=== PATIENT | male | born 1960 | race Caucasian/White ===

== ENCOUNTER → 2017-07-12 | Outpatient (CLI) | payer BC ==
[2016-10-24 10:40] VITALS: BP 156/78
[~2017-07-12] MED LIST: Clonidine TD; DILT240C32 PO; ESOM40CA25 PO; GABA-585 PO; HYDR-2762 PO; IBUP200T43 PO; INSU100I13 SQ; INSU300I SQ; IOHEXOL 240 MG/ML 50ML VIAL. PO ONE; IOHEXOL 300 MG/ML 75 ML VIAL. IV ONE; LIPA1CAP12 PO; MELO15TA23 PO; MELO15TA6 PO; MULT-245 PO; MULT-246 PO; NICO1PAT21 TD; OXYC20TA34 PO; PRED50TA PO
[2017-07-12 10:16] LABS: BASO # 0.1 x10^3/uL (0.0-0.2); BASO % 1 % (0-3); EOS # 0.1 x10^3/uL (0.0-0.7); EOS % 1 % (0-3); HEMATOCRIT 40.6 % (39.0-53.0); HEMOGLOBIN 14.2 g/dL (13.0-17.5); LYMPH # 2.2 x10^3/uL (1.0-4.8); LYMPH % 21 % (24-48); MEAN CORPUSCULAR HEMOGLOBIN 34 pg (25-35); MEAN CORPUSCULAR HGB CONC 35 g/dL (31-37); MEAN CORPUSCULAR VOLUME 96 fL (79-100); MONO # 1.2 x10^3/uL (0.0-1.1); MONO % 11 % (0-9); NEUT # 7.1 x10^3uL (1.8-7.7); NEUT % 67 % (31-73); PLATELET COUNT 296 x10^3/uL (140-400); RED BLOOD COUNT 4.23 x10^6/uL (4.30-5.70); RED CELL DISTRIBUTION WIDTH 12.7 % (11.5-14.5); WHITE BLOOD COUNT 10.6 x10^3/uL (4.0-11.0)
[2017-07-12 10:25] LABS: ALBUMIN 3.3 g/dL (3.4-5.0); ALBUMIN/GLOBULIN RATIO 0.8 (1.0-1.7); CALCIUM 9.3 mg/dL (8.5-10.1); CREATININE 0.8 mg/dL (0.7-1.3); POTASSIUM 3.7 mmol/L (3.5-5.1); TOTAL BILIRUBIN 0.6 mg/dL (0.2-1.0); TOTAL PROTEIN 7.7 g/dL (6.4-8.2)
--- NOTE | 2017-07-12 12:16 | RAD ---
CT of the abdomen and pelvis with contrast, 07/12/2017: History: Increasing abdominal pain and vomiting Multidetector CT imaging was performed following oral and IV administration of contrast. Comparison is made to a study from 12/06/2015. Coronary artery calcifications are present. The lung bases are clear. No hepatic abnormality is seen. There are radiopacities within the dependent aspect of the gallbladder compatible with gallstones. No pericholecystic edema is seen. There are numerous pancreatic calcifications compatible with chronic calcific pancreatitis. A cystic structure in the pancreatic body, just to the left of midline seen on the previous study has increased in size. It now measures 7.1 cm in width. There is a discrete wall as well as evidence of internal debris. Enlargement of the pancreatic head seen on the previous study has diminished. There is a 9 mm cystic structure in the pancreatic head which may be an additional small pseudocyst or dilated ductal segment. There is a 7.4 cm cyst related to the pancreatic tail located along the anterior margin of the spleen. This has decreased in size since the previous study at which time it measured 9.8 cm in width. There is mild calcification along its rim. This most likely represents an additional pseudocyst There is mild bilateral renal scarring. The kidneys show no evidence of obstruction. There is unchanged mild diffuse thickening of the left adrenal gland. Aortoiliac calcific plaquing is present without evidence of aneurysm. No abdominal or pelvic adenopathy is seen. There is narrowing of the splenic vein as it passes along the posterior margin of the cystic mass in the pancreatic body. The portal vein is patent. There are colonic diverticula, most numerous in the sigmoid region. The bowel loops are not dilated. The appendix is visualized and shows no abnormality. No free air or significant free fluid is evident in the abdomen or pelvis. There are old lower rib fractures on the left. A right hip prosthesis is in place. There are moderate degenerative changes in the spine with minimal anterolisthesis at L4-5. IMPRESSION: 1. Chronic calcific pancreatitis with an enlarging complicated cyst in the pancreatic body most compatible with a pseudocyst. 2. The chronic presumed pseudocyst related to the pancreatic tail has decreased in size since 12/06/2015. 3. Probable tiny pseudocyst in the pancreatic head. 4. Cholelithiasis. 5. Sigmoid diverticulosis. PQRS Compliance Statement: One or more of the following individualized dose reduction techniques were utilized for this examination: 1. Automated exposure control 2. Adjustment of the mA and/or kV according to patient size 3. Use of iterative reconstruction technique
[2017-07-12 13:54] LABS: THYROID STIM HORMONE (TSH) 2.523 uIU/mL (0.358-3.740)
[2017-07-13 00:08] LABS: HEMOGLOBIN A1C 6.6 % (4.8-5.6)
[2017-07-13 14:11] LABS: FREE PSA/PSA RATIO 27.1 % (.); PSA FREE 0.19 ng/mL; PSA TOTAL 0.7 ng/mL (0.0-4.0)
== END | disposition home or self-care (01) ==
LOC: CT 09:49
PROVIDERS: ATTEND Physician Assistant
DX: K80.20 Calculus of gallbladder without cholecystitis without obstruction (principal); K86.1 Other chronic pancreatitis; K86.2 Cyst of pancreas; K57.30 Diverticulosis of large intestine without perforation or abscess without bleeding; I25.10 Atherosclerotic heart disease of native coronary artery without angina pectoris; K86.89 Other specified diseases of pancreas; N28.89 Other specified disorders of kidney and ureter; I70.0 Atherosclerosis of aorta; M43.06 Spondylolysis, lumbar region; R35.1 Nocturia; I10 Essential (primary) hypertension; E11.65 Type 2 diabetes mellitus with hyperglycemia; S22.42XD Multiple fractures of ribs, left side, subsequent encounter for fracture with routine healing; Z79.01 Long term (current) use of anticoagulants; Z96.641 Presence of right artificial hip joint; X58.XXXD Exposure to other specified factors, subsequent encounter
CPT/HCPCS: 36415; 74177; 80053; 80061; 82150; 83036; 83690; 84153; 84154; 84443; 85025; Q9966; Q9967

== ENCOUNTER 2017-09-26 21:39 | Inpatient (IN) | payer BC ==
[~2017-09-26] VITALS: Ht 180.3 cm; Wt 84.1 kg
[~2017-09-26 21:39] MED LIST changes: -IBUP200T43 PO; +IBUP200T44 PO; -IOHEXOL 240 MG/ML 50ML VIAL. PO ONE; -IOHEXOL 300 MG/ML 75 ML VIAL. IV ONE
--- NOTE | 2017-09-26 21:40 | ED.ADGEN ---
Past History Past Medical History: Diabetes, Gallstones, GERD, Hypertension, Pancreatitis, Other Past Surgical History: Hip Replacement, Other Smoking: Less than 1pk/day Alcohol Use: Occasionally Drug Use: None Adult General Chief Complaint Chief Complaint ".. I got to drinking some beer while watching the foot ball game on Tuesday.. and it probably got my pancreatitis all flared up again..." HPI HPI Patient is a 57 year old male who presents with above history and complaints of generalized abdomen pain. Patient states his presentation consistent with previous episodes of pancreatitis. Patient did indulge in intake of beer during a football game on Tuesday and since that time has had exacerbation of his pancreatic pain. Patient states he is taking some hydrocodone tablets at home with no relief of his pain. Patient rates his pain 9-10 out of 10. Patient has to nauseated to take any foods. Patient denies any travel or ill contacts. Patient denies any tarry stools. Patient localizes pain across tenderness upper abdomen. Patient follows with Dr. Beyer. Review of Systems Review of Systems Constitutional: Denies fever or chills [] Eyes: Denies change in visual acuity, redness, or eye pain [] HENT: Denies nasal congestion or sore throat [] Respiratory: Denies cough or shortness of breath [] Cardiovascular: No additional information not addressed in HPI [] GI: Complaints of abdominal pain, nausea,. Denies vomiting, bloody stools or diarrhea [] : Denies dysuria or hematuria [] Musculoskeletal: Denies back pain or joint pain [] Integument: Denies rash or skin lesions [] Neurologic: Denies headache, focal weakness or sensory changes [] Endocrine: Denies polyuria or polydipsia [] All other systems were reviewed and found to be within normal limits, except as documented in this note. Family History Family History Noncontributory Current Medications Current Medications Current Medications Medications (Trade) Dose Ordered Sig/Anel Start Time Stop Time Status Last Admin Dose Admin Ceftriaxone Sodium 1 gm/ Sodium Chloride 50 ml @ 100 mls/hr DAILY 09/27/17 09:00 UNV Famotidine (Pepcid Vial) 20 mg DAILY 09/27/17 09:00 UNV Iohexol (Omnipaque 240 Mg/ml) 30 ml 1X ONCE 09/26/17 22:15 09/26/17 22:16 DC 09/26/17 23:21 30 ML Iohexol (Omnipaque 300 Mg/ml) 75 ml 1X ONCE 09/26/17 22:15 09/26/17 22:16 DC 09/26/17 23:22 75 ML Lactated Ringer's 1,000 ml @ 1,000 mls/hr Q1H 09/26/17 22:00 Metronidazole 100 ml @ 100 mls/hr Q8HRS 09/27/17 06:00 UNV Morphine Sulfate (Morphine 10mg Syringe) 10 mg QIDPRN PRN 09/27/17 01:00 UNV Ondansetron HCl (Zofran) 4 mg QIDPRN PRN 09/27/17 01:00 UNV Sodium Chloride 1,000 ml @ 1,000 mls/hr Q1H 09/26/17 22:00 09/26/17 22:59 DC 09/26/17 22:39 1,000 MLS/HR See nursing for home meds Allergies Allergies Allergies Coded Allergies Type Severity Reaction Last Updated Verified KELTON Inhibitors Allergy Intermediate 03/27/14 Yes lisinopril Allergy Unknown 03/27/14 Yes Physical Exam Physical Exam Constitutional: in acute distress, non-toxic appearance. [] HENT: Normocephalic, atraumatic, bilateral external ears normal, oropharynx moist, no oral exudates, nose normal. [] Eyes: PERRLA, EOMI, conjunctiva normal, no discharge. [] Neck: Normal range of motion, no tenderness, supple, no stridor. [] Cardiovascular:Heart rate regular rhythm, no murmur . PMI to the left Lungs & Thorax: Bilateral breath sounds equal at apexes with scattered wheezes and some basilar crackles on auscultation [] Abdomen: Bowel sounds decreased, soft, marked generalized tenderness, does have increased pain in epigastric on palpation., no pulsatile masses. [] Skin: Warm, diaphoretic, no erythema, no rash. [] Back: No tenderness, no CVA tenderness. [] Extremities: No tenderness, no cyanosis, no clubbing, ROM intact, no edema. [] Neurologic: Alert and oriented X 3, normal motor function, normal sensory function, no focal deficits noted. [] Psychologic: Affect anxious, judgement normal, mood depressed Current Patient Data Vital Signs Vital Signs Date Time Temp Pulse Resp B/P (MAP) Pulse Ox O2 Delivery O2 Flow Rate FiO2 09/27/17 00:00 78 16 157/88 (111) 92 09/26/17 23:00 Room Air 09/26/17 21:49 97.5 Lab Results Laboratory Tests Test 09/26/17 22:27 09/26/17 23:02 09/26/17 23:57 White Blood Count 12.6 x10^3/uL (4.0-11.0) H Red Blood Count 4.55 x10^6/uL (4.30-5.70) Hemoglobin 15.1 g/dL (13.0-17.5) Hematocrit 43.9 % (39.0-53.0) Mean Corpuscular Volume 96 fL (79-100) Mean Corpuscular Hemoglobin 33 pg (25-35) Mean Corpuscular Hemoglobin Concent 34 g/dL (31-37) Red Cell Distribution Width 14.2 % (11.5-14.5) Platelet Count 200 x10^3/uL (140-400) Neutrophils (%) (Auto) 87 % (31-73) H Lymphocytes (%) (Auto) 8 % (24-48) L Monocytes (%) (Auto) 4 % (0-9) Eosinophils (%) (Auto) 0 % (0-3) Basophils (%) (Auto) 1 % (0-3) Neutrophils # (Auto) 11.0 x10^3uL (1.8-7.7) H Lymphocytes # (Auto) 1.0 x10^3/uL (1.0-4.8) Monocytes # (Auto) 0.6 x10^3/uL (0.0-1.1) Eosinophils # (Auto) 0.0 x10^3/uL (0.0-0.7) Basophils # (Auto) 0.1 x10^3/uL (0.0-0.2) Prothrombin Time 10.8 SEC (9.4-11.4) Prothrombin Time INR 1.1 (0.9-1.1) PTT 28 SEC (23-33) Sodium Level 135 mmol/L (136-145) L Potassium Level 3.7 mmol/L (3.5-5.1) Chloride Level 99 mmol/L (98-107) Carbon Dioxide Level 27 mmol/L (21-32) Anion Gap 9 (6-14) Blood Urea Nitrogen 15 mg/dL (8-26) Creatinine 0.8 mg/dL (0.7-1.3) Estimated GFR (Cockcroft-Gault) 100.0 Glucose Level 206 mg/dL (70-99) H Calcium Level 8.1 mg/dL (8.5-10.1) L Total Bilirubin 0.4 mg/dL (0.2-1.0) Direct Bilirubin 0.1 mg/dL (0.0-0.2) Aspartate Amino Transferase (AST) 19 U/L (15-37) Alanine Aminotransferase (ALT) 20 U/L (16-63) Alkaline Phosphatase 75 U/L (46-116) Creatine Kinase 108 U/L (39-308) Creatine Kinase MB (Mass) 1.5 ng/mL (0.0-3.6) Creatine Kinase MB Relative Index 1.4 % (0-4) Troponin I Quantitative < 0.017 ng/mL (0-0.055) Total Protein 7.4 g/dL (6.4-8.2) Albumin 3.6 g/dL (3.4-5.0) Amylase Level 160 U/L (25-115) H Lipase 611 U/L (73-393) H Ethyl Alcohol Level < 10 mg/dL (0-10) Urine Collection Type Unknown Urine Color Yellow Urine Clarity Clear Urine pH 7.5 Urine Specific [place] 1.015 Urine Protein Neg (NEG-TRACE) Urine Glucose (UA) >=1000 mg/dL (NEG) Urine Ketones (Stick) 40 mg/dL (NEG) Urine Blood Trace (NEG) Urine Nitrite Neg (NEG) Urine Bilirubin Neg (NEG) Urine Urobilinogen Dipstick 0.2 mg/dL (0.2 mg/dL) Urine Leukocyte Esterase Neg (NEG) Urine RBC Occ /HPF (0-2) Urine WBC Occ /HPF (0-4) Urine Squamous Epithelial Cells None /LPF Urine Bacteria 0 /HPF (0-FEW) Urine Opiates Screen Pos (NEG) Urine Methadone Screen Neg (NEG) Urine Barbiturates Neg (NEG) Urine Phencyclidine Screen Neg (NEG) Urine Amphetamine/Methamphetamine Neg (NEG) Urine Benzodiazepines Screen Neg (NEG) Urine Cocaine Screen Neg (NEG) Urine Cannabinoids Screen Neg (NEG) Urine Ethyl Alcohol Neg (NEG) EKG EKG My interpretation of EKG shows a sinus rhythm at 70 bpm. No findings acute STEMI.[] Radiology/Procedures Radiology/Procedures My interpretation of acute abdomen film shows no free air under the diaphragm old pulmonary calcified nodules and findings of COPD[]. Some basilar atelectasis. Right hip replacement. Nonspecific bowel gas pattern. CT of abdomen pending at time of admission. Course & Med Decision Making Course & Med Decision Making Pertinent Labs and Imaging studies reviewed. (See chart for details) Message left with Dr. Beyer at 0015 , 09/27/2017. Will admit for further eval and tx. of abd. pain. [] Final Impression Final Impression 1. Abdomen Pain 2. Pancreatitis acute on chronic 3. Alcohol Abuse[] 4. Leukocytosis 5. Pseudocysts 6.6 cm x 2 6. DM Problems: Dragon Disclaimer Dragon Disclaimer This electronic medical record was generated, in whole or in part, using a voice recognition dictation system. ERICK MCKEON MD Sep 26, 2017 21:40
[2017-09-26] MEDS ORDERED: FAMOTIDINE 20 MG/2 ML VIAL IVP ONE (22:00)
[2017-09-26] MEDS ORDERED: IV RINGERS SOLUTION,LACTATED 1,000 ML IV SCH (22:00)
[2017-09-26] MEDS ORDERED: ONDANSETRON PF 4 MG/2 ML VIAL. IV ONE (22:00)
[2017-09-26] MEDS ORDERED: IV NORMAL SALINE 1,000ML 1,000 ML IV SCH (22:00)
[2017-09-26] MEDS ORDERED: IOHEXOL 300 MG/ML 75 ML VIAL. IV ONE (22:15)
[2017-09-26] MEDS ORDERED: IOHEXOL 240 MG/ML 50ML VIAL. PO ONE (22:15)
[2017-09-26] MEDS ORDERED: MORPHINE SULFATE 10 MG/ML SYRINGE. SQ ONE (22:30)
[2017-09-26 22:47] LABS: BASO # 0.1 x10^3/uL (0.0-0.2); BASO % 1 % (0-3); EOS % 0 % (0-3); HEMATOCRIT 43.9 % (39.0-53.0); HEMOGLOBIN 15.1 g/dL (13.0-17.5); LYMPH % 8 % (24-48); MEAN CORPUSCULAR HEMOGLOBIN 33 pg (25-35); MEAN CORPUSCULAR HGB CONC 34 g/dL (31-37); MEAN CORPUSCULAR VOLUME 96 fL (79-100); MONO # 0.6 x10^3/uL (0.0-1.1); MONO % 4 % (0-9); NEUT % 87 % (31-73); PLATELET COUNT 200 x10^3/uL (140-400); RED BLOOD COUNT 4.55 x10^6/uL (4.30-5.70); RED CELL DISTRIBUTION WIDTH 14.2 % (11.5-14.5); WHITE BLOOD COUNT 12.6 x10^3/uL (4.0-11.0)
[2017-09-26 23:52] LABS: ALBUMIN 3.6 g/dL (3.4-5.0); CALCIUM 8.1 mg/dL (8.5-10.1); CREATININE 0.8 mg/dL (0.7-1.3); DIRECT BILIRUBIN 0.1 mg/dL (0.0-0.2); POTASSIUM 3.7 mmol/L (3.5-5.1); TOTAL BILIRUBIN 0.4 mg/dL (0.2-1.0); TOTAL PROTEIN 7.4 g/dL (6.4-8.2)
--- NOTE | 2017-09-26 23:59 | RAD ---
EXAM: CT ABDOMEN/PELVIS WITH CONTRAST. HISTORY: Leukocytosis, abdominal pain, nausea. TECHNIQUE: Computed tomography of the abdomen and pelvis was performed after the intravenous administration of 75 mL Omnipaque 300. COMPARISON: None available. FINDINGS: Lung windows through the visualized portions of the bases reveal mild atelectasis. There are atherosclerotic calcifications of the coronary arteries. Bone windows reveal no suspicious lesions. There is grade 1 anterolisthesis at L4-L5 from facet osteoarthritis. A right total hip arthroplasty is noted. There are chronic left posterior rib fractures. There is a fluid collection in the body the pancreas that measures 6.6 x 5.0 cm. It has heterogeneous hyperattenuating contents. This compresses the portosplenic confluence but it remains patent. Calcifications throughout the pancreatic parenchyma indicate chronic pancreatitis. The pancreatic duct in the tail is mildly dilated and irregular. A second fluid collection along the inferior pole of the spleen may originate from the pancreas given similar rim calcifications. It measures 6.6 x 6.1 cm. No acute surrounding inflammatory changes seen. Small gallstones are noted. There is no pericholecystic inflammation. The common duct is not dilated. The left adrenal gland is thickened without a discrete mass. The kidneys are unremarkable. There are no pathologically enlarged lymph nodes. Sigmoid diverticulosis is moderate. There is no obstruction. The appendix is not inflamed. IMPRESSION: 1. 6.6 cm complicated fluid collection within the pancreatic body most consistent with a pseudocyst. It may contain some hemorrhage given its attenuation. 2. Another 6.6 cm fluid collection at the pancreatic tail may extend into the spleen and is also consistent with a pseudocyst. 3. Correlate with older examinations to assess chronicity of these findings. No clear acute inflammation. 4. Chronic pancreatitis. 5. Cholelithiasis. *One or more of the following individualized dose reduction techniques were utilized for this examination: 1. Automated exposure control. 2. Adjustment of the mA and/or kV according to patient size. 3. Use of iterative reconstruction technique. Electronically signed by: Natividad Bourne MD (09/26/2017 11:55 PM) [facility]
[2017-09-27] VITALS (7 sets, daily range): BP systolic 140–174; BP diastolic 77–83
[2017-09-27 00:42] LABS: BARBITURATES NEG (NEG); BENZODIAZEPINES NEG (NEG); CANNABINOIDS NEG (NEG); COCAINE NEG (NEG); METHADONE NEG (NEG); OPIATES POS (NEG); PHENCYCLIDINE NEG (NEG)
[2017-09-27 00:47] LABS: BACTERIA,URINE 0 /HPF (0-FEW); BILIRUBIN,URINE NEG (NEG); CLARITY,URINE CLEAR; COLOR,URINE YELLOW; GLUCOSE,URINE >=1000 mg/dL (NEG); NITRITE,URINE NEG (NEG); RBC,URINE OCC /HPF (0-2); UROBILINOGEN,URINE 0.2 mg/dL (0.2 mg/dL); WBC,URINE OCC /HPF (0-4)
[2017-09-27 00:53] LABS: AMPHETAMINE/METHAMPHETAMINE NEG (NEG)
[2017-09-27] MEDS ORDERED: MORPHINE SULFATE 10 MG/ML SYRINGE. SQ PRN (01:00)
[2017-09-27] MEDS ORDERED: ONDANSETRON PF 4 MG/2 ML VIAL. IV PRN (01:00)
[2017-09-27] MEDS ORDERED: cefTRIAXone SODIUM 1 GM VIAL IV ONE (02:17)
[2017-09-27] MEDS ORDERED: IV NORMAL SALINE 50ML 50 ML ONE (02:17)
--- NOTE | 2017-09-27 03:05 | NUR ---
Pt was admitted to ICU bed 4 from ER via [facility], accompanied by EMS and nursing staff. Pt self transferred from [facility] to bed independently, steady gait noted. Admission assessment completed. VSS. Health history & home medications reviewed with pt. Pt admitted for Abd. pain & acute/chronic Pancreatitis (Lipase 611). Pt rating left abd. pain 4/10, but states marked improvement and currently denies need for PRN pain medications. Pt is NPO, oral swabs provided. IV Flagyl started per orders. LBM 09/26. Pt lives at home with . SCDs for VTE. Pt UTD on pneumonia vaccine but refuse Flu vaccine. Pt was given written information regarding hospital policies, unit procedures and contact persons. Valuables were checked and left at bedside. Call light within reach.
[2017-09-27] MEDS ORDERED: NICOTINE 21MG PATCH. TD PRN (03:45)
[2017-09-27] MEDS ORDERED: DEXTROSE 50% 25 GM / 50ML DISP.SYRIN. IV PRN (03:45)
--- NOTE | 2017-09-27 07:11 | EKG ---
[address] [address] Test Date: 2017-09-26 Test Time: 22:02:25 Pat Name: TIESHA JANSEN Department: Room: [facility] 1 Gender: M Fingernail Sculptor: ROSARIO : 1960 Requested By: ERICK MCKEON Order Number: [id number] Reading MD: Naga Fraga MD Measurements Intervals [place] Rate: 70 P: 51 ND: 194 QRS: 43 QRSD: 108 T: 42 QT: 410 QTc: 446 Interpretive Statements SINUS RHYTHM Electronically Signed On 09-27-2017 10:15:11 MARKETING RESEARCH COORDINATOR by Naga Fraga MD
--- NOTE | 2017-09-27 07:43 | RAD ---
Acute abdomen series with chest, 3 views, 09/26/2017: History: Severe abdominal pain with nausea, pancreatitis The abdominal gas pattern is unremarkable. No free air seen in the abdomen. Pancreatic calcifications are again noted in the left upper quadrant. Some of these demonstrate a rim-like configuration related to the patient's known pancreatic pseudocyst. There is no evidence of organomegaly. The heart size is normal. The pulmonary vascularity is within normal limits. There is a calcified granuloma in the left base. No acute infiltrate is seen. There is no evidence of pleural fluid. Moderate spurring is present in the spine. A right hip prosthesis is in place. IMPRESSION: 1. Chronic calcific pancreatitis. 2. No acute abdominal abnormality is detected.
[2017-09-27] MEDS: INSULIN ASPART 300 UNITS/3 ML INSULN.PEN SQ SCH ×4 (08:50→21:00)
[2017-09-27] MEDS ORDERED: FAMOTIDINE 20 MG/2 ML VIAL IVP SCH (09:00)
[2017-09-27] MEDS ORDERED: THIAMINE IM 200 MG/2 ML VIAL. IM SCH (10:00)
[2017-09-27] MEDS: LIPASE/PROTEAS/AMYLASE 5/17/27 CAPSULE.DR. PO SCH ×2 (11:37→16:26)
[2017-09-27] MEDS: MORPHINE SULFATE 2 MG/ML DISP.SYRIN. IV PRN ×2 (15:32→23:42)
[2017-09-27] MEDS: LACTOBACILLUS RHAMNOSUS GG 1 CAPSULE. PO SCH (20:07)
[2017-09-27] MEDS ORDERED: cefTRIAXone IV Push 1 GM VIAL. IVP SCH (21:00)
--- NOTE | 2017-09-28 03:48 | HP ---
ADMIT DATE: 09/27/2017 HISTORY OF PRESENT ILLNESS: A 57-year-old male with a history of alcohol who came in with severe abdominal pain. The patient was seen in the Emergency Room, came in with abdominal pain, was diagnosed with having pancreatitis and pseudocyst of his pancreas. The patient had no pain relief, with taking some hydrocodone at home for his pain. He rated pain 9/10. The patient was admitted for acute pancreatitis and pseudocyst. PAST MEDICAL HISTORY: Diabetes, gallstones, GERD, hypertension, chronic pancreatitis. PAST SURGICAL HISTORY: He has had a hip replacement. He had right bicep tear repair, right knee replacement, right hip replacement with hardware diverticulitis, gastritis, GERD, hypertension. He continues to smoke. He has been encouraged to stop smoking. Influenza and pneumococcal vaccinations are up-to-date. FAMILY HISTORY: Hypertension in father and mother. Autoimmune disease in a brother and cancer confirmed in both mother and father. ALLERGIES: KELTON inhibitors such as lisinopril. HOME MEDICATIONS: Include that of diltiazem 240 mg daily, Nexium 40 mg daily, ibuprofen 200 mg p.r.n., Toujeo 15 units daily, Meloxicam 15 mg daily. SOCIAL HISTORY: The patient continues to smoke, he has about a [id number] history of smoking. He has not been drinking for some time, did have some beers over the weekend with football games. Apparently, he denies hard drug use. REVIEW OF SYSTEMS: The patient denies any headaches, visual changes, blurred vision, double vision. Denies any melena, hematochezia, or hematemesis and neurologically intact. PHYSICAL EXAMINATION: GENERAL: White male, moderate amount of pain. VITAL SIGNS: Blood pressure 180/90, respiration 16, pulse 70, afebrile. HEENT: The patient's head was atraumatic, normocephalic. Eyes: PERRLA without jaundice. Mouth and throat: Normal. NECK: Supple. LUNGS: Clear. CARDIOVASCULAR: Regular sinus rhythm, S1, S2. ABDOMEN: Soft. Definite tenderness in the mid periumbilical area and up to the left upper quadrant area, slight guarding but no rebounding. Positive bowel sounds, no hepatosplenomegaly. EXTREMITIES: No clubbing, cyanosis or edema. NEUROLOGIC: The patient was alert and oriented x3. Speech fluent. Cranial nerves 2-12 grossly intact. LABORATORY DATA: As noted, the lipase was elevated to 610, amylase 160. Blood sugar approximately 200. BUN, creatinine, sodium, and potassium, all within normal limits. White count elevated at 12.6. IMPRESSION: Acute pancreatitis on top of chronic pancreatitis; pseudocyst, greater than 6 cm, and type 2 diabetes. The patient will be admitted for further evaluation and treatment, pain management, IV fluids and make further evaluation on him as indicated. SKYLER BRIDGES MD DR: SLOANE/david JOB#: [id number] / [id number]
[2017-09-28] MEDS ORDERED: IV RINGERS SOLUTION,LACTATED 1,000 ML IV SCH (05:00)
[2017-09-28 06:30] VITALS: BP 137/82
[2017-09-28 07:01] LABS: BASO # 0.1 x10^3/uL (0.0-0.2); BASO % 1 % (0-3); EOS # 0.1 x10^3/uL (0.0-0.7); EOS % 2 % (0-3); HEMATOCRIT 42.2 % (39.0-53.0); HEMOGLOBIN 14.3 g/dL (13.0-17.5); LYMPH # 1.9 x10^3/uL (1.0-4.8); LYMPH % 20 % (24-48); MEAN CORPUSCULAR HEMOGLOBIN 33 pg (25-35); MEAN CORPUSCULAR HGB CONC 34 g/dL (31-37); MEAN CORPUSCULAR VOLUME 97 fL (79-100); MONO # 0.9 x10^3/uL (0.0-1.1); MONO % 10 % (0-9); NEUT # 6.4 x10^3uL (1.8-7.7); NEUT % 67 % (31-73); PLATELET COUNT 186 x10^3/uL (140-400); RED BLOOD COUNT 4.37 x10^6/uL (4.30-5.70); RED CELL DISTRIBUTION WIDTH 14.3 % (11.5-14.5); WHITE BLOOD COUNT 9.6 x10^3/uL (4.0-11.0)
[2017-09-28 07:22] LABS: ALBUMIN/GLOBULIN RATIO 0.8 (1.0-1.7); CALCIUM 8.6 mg/dL (8.5-10.1); CREATININE 0.8 mg/dL (0.7-1.3); POTASSIUM 3.6 mmol/L (3.5-5.1); TOTAL BILIRUBIN 0.4 mg/dL (0.2-1.0); TOTAL PROTEIN 6.6 g/dL (6.4-8.2)
[2017-09-28] MEDS: INSULIN ASPART 300 UNITS/3 ML INSULN.PEN SQ SCH ×2 (07:30→11:30)
[2017-09-28] MEDS: LIPASE/PROTEAS/AMYLASE 5/17/27 CAPSULE.DR. PO SCH (08:21)
[2017-09-28] MEDS ORDERED: LIPA1CAP11 PO (09:16)
[2017-09-28] MEDS ORDERED: Nicotine 21MG TD (09:16)
[2017-09-28] MEDS: LACTOBACILLUS RHAMNOSUS GG 1 CAPSULE. PO SCH (09:17)
[2017-09-28 11:23] VITALS: BP 137/89
[2017-09-28] MEDS ORDERED: THIAMINE 100 MG TABLET. PO SCH (12:30)
--- NOTE | 2017-09-28 21:11 | DS ---
DATE OF DISCHARGE: 09/27/2017 HOSPITAL COURSE: This is a 57-year-old male came in with abdominal pain. He had apparently some beers over the weekend acute on top of chronic pancreatitis. The patient's amylase and lipase were elevated, lipase over 600. Blood sugars were slightly elevated as he has a history of diabetes as well. In any case, he was placed on bowel rest and given some time and he made good progress during the rest of his hospitalization, felt much better. Amylase and lipase came down into normal range. He did have a CT scan of the abdomen and pelvis for which he was told to follow up at with Dr. Hardwick. He has a two 6.6 cm cysts, 1 in the pancreatic body and one at the distal pancreatic tail extending into the spleen itself. He also has a history of cholelithiasis and chronic pancreatitis. I have told him to follow up with GI doctors. In any case, the patient is resting fairly comfortably. Blood pressure 137/80, respiratory rate 20, pulse 65, afebrile. The patient made good progress at time of discharge, abdomen was soft, Nontender. He was able to . He should be using some type of enzymatic predigestive enzymes. In any case, he made good progress. He was discharged home on p.o. IMPRESSION: Acute on top of chronic pancreatitis, pancreatic pseudocyst , moderate protein malnutrition, history of chronic pancreatitis, cholelithiasis. PLAN: The patient will be discharged home. Regular diet, decreased activity. See MRAD. No alcohol of course, stop smoking, and return for followup in 7-10 days or sooner as needed. SKYLER BRIDGES MD DR: SLOANE/david JOB#: [id number] / [id number]
== END 2017-09-28 12:00 | disposition home or self-care (01) | DRG 439 ==
LOC: ER 21:39 → ICU 09-27 00:15 → ER 09-27 02:51 → 1 SOUTH 09-27 07:55
PROVIDERS: ADMIT Family Medicine; ATTEND Family Medicine
DX: K85.90 Acute pancreatitis without necrosis or infection, unspecified (principal); K86.3 Pseudocyst of pancreas; E44.0 Moderate protein-calorie malnutrition; K86.1 Other chronic pancreatitis; E11.9 Type 2 diabetes mellitus without complications; K21.9 Gastro-esophageal reflux disease without esophagitis; I10 Essential (primary) hypertension; F17.210 Nicotine dependence, cigarettes, uncomplicated; K80.20 Calculus of gallbladder without cholecystitis without obstruction; F10.10 Alcohol abuse, uncomplicated; Z96.641 Presence of right artificial hip joint; Z96.651 Presence of right artificial knee joint; Z79.899 Other long term (current) drug therapy; Z82.49 Family history of ischemic heart disease and other diseases of the circulatory system; Z88.8 Allergy status to other drugs, medicaments and biological substances; Z68.25 Body mass index [BMI] 25.0-25.9, adult
CPT/HCPCS: 36415; 74022; 74177; 80048; 80053; 80076; 80307; 81001; 82150; 82553; 82947; 83690; 84484; 85025; 85610; 85730; 87641; 93005; 96361; 96365; 96372; 96375; 99406; G0238; G0480; J0696; J1815; J2270; J2405; J3490; J7120; Q9966; Q9967; S0028; 99285-25; G0479; J7030

== ENCOUNTER 2018-01-30 22:37 | Inpatient (IN) | payer BC ==
[~2018-01-30] VITALS: Ht 177.8 cm; Wt 83.9 kg
[~2018-01-30 22:37] MED LIST changes: +LIPA1CAP11 PO; +Nicotine 21MG TD
[2018-01-30 23:33] LABS: BASO # 0.1 x10^3/uL (0.0-0.2); BASO % 1 % (0-3); EOS # 0.2 x10^3/uL (0.0-0.7); EOS % 1 % (0-3); HEMOGLOBIN 15.6 g/dL (13.0-17.5); LYMPH # 2.9 x10^3/uL (1.0-4.8); LYMPH % 20 % (24-48); MEAN CORPUSCULAR HEMOGLOBIN 34 pg (25-35); MEAN CORPUSCULAR HGB CONC 35 g/dL (31-37); MEAN CORPUSCULAR VOLUME 97 fL (79-100); MONO % 7 % (0-9); NEUT # 10.5 x10^3uL (1.8-7.7); NEUT % 72 % (31-73); PLATELET COUNT 191 x10^3/uL (140-400); RED BLOOD COUNT 4.65 x10^6/uL (4.30-5.70); RED CELL DISTRIBUTION WIDTH 14.3 % (11.5-14.5); WHITE BLOOD COUNT 14.7 x10^3/uL (4.0-11.0)
--- NOTE | 2018-01-30 23:34 | PHYS DOC ---
Past History Past Medical History: Hypertension Past Surgical History: No Surgical History Smoking: Less than 1pk/day Alcohol Use: None Drug Use: None Adult General Chief Complaint Chief Complaint: ABDOMINAL PAIN HPI HPI Patient is a 57 year old male who presents with complaint of abdominal pain. Patient states that his symptoms started worsening today. Patient states he has had history of pancreatitis and states that this feels very similar. Patient last had an episode 9 months ago. Patient states that his symptoms are due to alcohol use. Patient states that he was able to avoid alcohol use for several months, however he has recently relapsed over the past month. Patient states that he drank 6-7 beers today while mowing his grass. Patient states his symptoms started shortly afterward. Patient denies fever. Patient does have nausea and denies any bloody stools or hematemesis. Patient rates his pain currently as 9 out of 10. Patient follows a Dr. Bridges for primary care. Review of Systems Review of Systems Constitutional: Denies fever or chills [] Eyes: Denies change in visual acuity, redness, or eye pain [] HENT: Denies nasal congestion or sore throat [] Respiratory: Denies cough or shortness of breath [] Cardiovascular: Denies chest pain or edema[] GI: Abdominal pain, nausea, denies bloody stools or diarrhea [] : Denies dysuria or hematuria [] Musculoskeletal: Denies back pain or joint pain [] Integument: Denies rash or skin lesions [] Neurologic: Denies headache, focal weakness or sensory changes [] All other systems were reviewed and found to be within normal limits, except as documented in this note. Current Medications Current Medications Current Medications Medications (Trade) Dose Ordered Sig/Anel Start Time Stop Time Status Last Admin Dose Admin Morphine Sulfate (Morphine 4mg Syringe) 4 mg PRN Q15MIN PRN 01/30/18 23:30 01/31/18 23:29 UNV Ondansetron HCl (Zofran) 4 mg 1X ONCE 01/30/18 23:30 01/30/18 23:31 UNV Sodium Chloride 1,000 ml @ 1,000 mls/hr Q1H 01/30/18 23:22 01/31/18 00:21 UNV Allergies Allergies Allergies Coded Allergies Type Severity Reaction Last Updated Verified KELTON Inhibitors Allergy Intermediate 03/27/14 Yes lisinopril Allergy Unknown 03/27/14 Yes Physical Exam Physical Exam Constitutional: Alert, afebrile, appears in moderate discomfort. [] HENT: Normocephalic, atraumatic, bilateral external ears normal, oropharynx moist, no oral exudates, nose normal. [] Eyes: PERRLA, EOMI, conjunctiva normal, no discharge. [] Neck: Normal range of motion, no tenderness, supple, no stridor. [] Cardiovascular:Heart rate regular rhythm, no murmur [] Lungs & Thorax: Bilateral breath sounds clear to auscultation [] Abdomen: Bowel sounds normal, soft, mild epigastric tenderness palpation with guarding, no rebound tenderness, no masses, no pulsatile masses. [] Skin: Warm, dry, no erythema, no rash. [] Back: No tenderness, no CVA tenderness. [] Extremities: No tenderness, no cyanosis, no clubbing, ROM intact, no edema. [] Neurologic: Alert and oriented X 3, normal motor function, normal sensory function, no focal deficits noted. [] Current Patient Data Vital Signs Vital Signs Date Time Temp Pulse Resp B/P (MAP) Pulse Ox O2 Delivery O2 Flow Rate FiO2 01/30/18 23:15 97.6 67 20 96 Room Air Lab Results Laboratory Tests Test 01/30/18 23:14 01/30/18 23:40 White Blood Count 14.7 x10^3/uL Red Blood Count 4.65 x10^6/uL Hemoglobin 15.6 g/dL Hematocrit 45.0 % Mean Corpuscular Volume 97 fL Mean Corpuscular Hemoglobin 34 pg Mean Corpuscular Hemoglobin Concent 35 g/dL Red Cell Distribution Width 14.3 % Platelet Count 191 x10^3/uL Neutrophils (%) (Auto) 72 % Lymphocytes (%) (Auto) 20 % Monocytes (%) (Auto) 7 % Eosinophils (%) (Auto) 1 % Basophils (%) (Auto) 1 % Neutrophils # (Auto) 10.5 x10^3uL Lymphocytes # (Auto) 2.9 x10^3/uL Monocytes # (Auto) 1.0 x10^3/uL Eosinophils # (Auto) 0.2 x10^3/uL Basophils # (Auto) 0.1 x10^3/uL Sodium Level 133 mmol/L Potassium Level 2.9 mmol/L Chloride Level 94 mmol/L Carbon Dioxide Level 28 mmol/L Anion Gap 11 Blood Urea Nitrogen 9 mg/dL Creatinine 0.9 mg/dL Estimated GFR (Cockcroft-Gault) 87.3 BUN/Creatinine Ratio 10 Glucose Level 190 mg/dL Calcium Level 8.5 mg/dL Magnesium Level 1.6 mg/dL Total Bilirubin 0.3 mg/dL Aspartate Amino Transf (AST/SGOT) 21 U/L Alanine Aminotransferase (ALT/SGPT) 27 U/L Alkaline Phosphatase 80 U/L Total Protein 8.0 g/dL Albumin 3.9 g/dL Albumin/Globulin Ratio 1.0 Lipase 619 U/L Ethyl Alcohol Level 126 mg/dL Urine Collection Type Unknown Urine Color Yellow Urine Clarity Clear Urine pH 6.0 Urine Specific Coburn 1.015 Urine Protein Neg Urine Glucose (UA) 500 mg/dL Urine Ketones (Stick) 15 mg/dL Urine Blood Trace Urine Nitrite Neg Urine Bilirubin Neg Urine Urobilinogen Dipstick 0.2 mg/dL Urine Leukocyte Esterase Neg Urine RBC Occ /HPF Urine WBC Occ /HPF Urine Squamous Epithelial Cells None /LPF Urine Bacteria 0 /HPF Current Medications Medications (Trade) Dose Ordered Sig/Anel Route PRN Reason Start Time Stop Time Status Last Admin Dose Admin Morphine Sulfate (Morphine 4mg Syringe) 4 mg PRN Q15MIN PRN IV/SQ PAIN GREATER THAN 3/10 01/30/18 23:45 01/31/18 23:44 01/30/18 23:48 Sodium Chloride 1,000 ml @ 1,000 mls/hr Q1H IV 01/30/18 23:45 01/31/18 00:44 DC 01/30/18 23:47 Ondansetron HCl (Zofran) 4 mg 1X ONCE IV 01/30/18 23:45 01/30/18 23:46 DC Magnesium Sulfate 50 ml @ 25 mls/hr 1X ONCE IV 01/31/18 01:15 01/31/18 03:14 01/31/18 01:24 Magnesium Sulfate 50 ml @ As Directed STK-MED ONCE IV 01/31/18 01:19 01/31/18 01:20 DC EKG EKG Interpreted by me: Heart rate 66, sinus rhythm, normal intervals, normal axis, no acute ST/T-wave abnormalities present[] Radiology/Procedures Radiology/Procedures [address] [address] IMAGING REPORT Signed PATIENT: TIESHA JANSEN ACCOUNT: [id number] : 1960 LOCATION: ER AGE: 57 SEX: M EXAM STATUS: REG ER ORD. PHYSICIAN: NEO PAUL MD REASON: abdominal pain PROCEDURE: ACUTE ABDOMEN SERIES Acute abdominal series to include a PA chest radiograph 01/30/2018 Clinical History: Severe abdominal pain. Nausea and vomiting. A PA digital radiograph of the chest was obtained. Supine and erect AP digital radiographs of the abdomen/pelvis were obtained. Comparison study is dated 09/26/2017. The cardiac and mediastinal silhouettes are within normal limits in size and configuration. No acute pulmonary infiltrate is seen. No pleural effusion or pneumothorax is noted. The abdominal bowel gas pattern is nonobstructive. A moderate amount of stool is seen scattered throughout the colon. The patient is post right AUNG. Calcifications are seen in the region of the splenic artery, unchanged. There is no evidence of free air. No radiopaque calculus is seen. The osseous structures are unchanged. Impression: Nonobstructive bowel gas pattern. Electronically signed by: Manuel Lyons MD (01/31/2018 12:20 AM) [facility] DICTATED AND SIGNED BY: MANUEL LYONS MD DATE: 01/31/18 0017 CC: SKYLER BRIDGES MD; NEO PAUL MD ~ [] Course & Med Decision Making Course & Med Decision Making Pertinent Labs and Imaging studies reviewed. (See chart for details) Patient started on IV fluids, morphine, and Zofran. Patient's lipase levels were found to be elevated and patient also found to have hypomagnesemia and hypokalemia. Given severity of patient's pain symptoms, the patient will be admitted to the hospital for further IV hydration and symptomatic control. Patient will also require electrolyte supplementation which started in the emergency department. I spoke with Dr. Bridges who accepted care patient in hospital. Dragon Disclaimer Dragon Disclaimer This electronic medical record was generated, in whole or in part, using a voice recognition dictation system. Departure Departure: Impression: Primary Impression: Acute alcoholic pancreatitis Additional Impressions: Hypokalemia Hypomagnesemia Disposition: ADMITTED INPATIENT Admitting Physician: Skyler Bridges Condition: STABLE Referrals: SKYLER BRIDGES MD (PCP) Problem Qualifiers Primary Impression: Acute alcoholic pancreatitis Acute pancreatitis complication: unspecified Qualified Codes: K85.20 - Alcohol induced acute pancreatitis without necrosis or infection NEO PAUL MD January 30, 2018 23:34
[2018-01-30] MEDS ORDERED: IV NORMAL SALINE 1,000ML 1,000 ML IV SCH (23:45)
[2018-01-30] MEDS ORDERED: MORPHINE SULFATE 4 MG/ML DISP.SYRIN. IV/SQ PRN (23:45)
[2018-01-30] MEDS ORDERED: ONDANSETRON PF 4 MG/2 ML VIAL. IV ONE (23:45)
[2018-01-30 23:49] LABS: ALBUMIN 3.9 g/dL (3.4-5.0); CALCIUM 8.5 mg/dL (8.5-10.1); CREATININE 0.9 mg/dL (0.7-1.3); GFR 87.3; MAGNESIUM 1.6 mg/dL (1.8-2.4); TOTAL BILIRUBIN 0.3 mg/dL (0.2-1.0)
[2018-01-31 00:01] LABS: POTASSIUM 2.9 mmol/L (3.5-5.1)
[2018-01-31 00:17] LABS: BILIRUBIN,URINE NEG (NEG); CLARITY,URINE CLEAR; COLOR,URINE YELLOW; GLUCOSE,URINE 500 mg/dL (NEG)
[2018-01-31 00:18] LABS: BACTERIA,URINE 0 /HPF (0-FEW); NITRITE,URINE NEG (NEG); RBC,URINE OCC /HPF (0-2); UROBILINOGEN,URINE 0.2 mg/dL (0.2 mg/dL); WBC,URINE OCC /HPF (0-4)
--- NOTE | 2018-01-31 00:23 | RAD ---
Acute abdominal series to include a PA chest radiograph 01/30/2018 Clinical History: Severe abdominal pain. Nausea and vomiting. A PA digital radiograph of the chest was obtained. Supine and erect AP digital radiographs of the abdomen/pelvis were obtained. Comparison study is dated 09/26/2017. The cardiac and mediastinal silhouettes are within normal limits in size and configuration. No acute pulmonary infiltrate is seen. No pleural effusion or pneumothorax is noted. The abdominal bowel gas pattern is nonobstructive. A moderate amount of stool is seen scattered throughout the colon. The patient is post right AUNG. Calcifications are seen in the region of the splenic artery, unchanged. There is no evidence of free air. No radiopaque calculus is seen. The osseous structures are unchanged. Impression: Nonobstructive bowel gas pattern. Electronically signed by: Manuel Lyons MD (01/31/2018 12:20 AM) [facility]
--- NOTE | 2018-01-31 00:45 | EKG ---
[address] [address] Test Date: 2018-01-30 Test Time: 23:13:03 Pat Name: TIESHA JANSEN Department: Room: Gender: M Inbound Sales Advisor: DAVID : 1960 Requested By: NEO PAUL Order Number: [id number] Reading MD: Measurements Intervals [place] Rate: 66 P: 50 MA: 204 QRS: 54 QRSD: 106 T: 37 QT: 414 QTc: 436 Interpretive Statements SINUS RHYTHM NO SPECIFIC ECG ABNORMALITIES RI6.01 No previous ECG available for comparison
[2018-01-31] MEDS ORDERED: MAGNESIUM SULFATE 2GM 50 ML IV ONE ×2 (01:15→01:19)
[2018-01-31] MEDS ORDERED: ONDANSETRON PF 4 MG/2 ML VIAL. IV PRN (01:30)
[2018-01-31] MEDS ORDERED: MORPHINE SULFATE 4 MG/ML DISP.SYRIN. IV PRN (01:30)
[2018-01-31] MEDS ORDERED: LORazepam 2 MG/ML VIAL IV PRN ×2 (01:30)
[2018-01-31] MEDS ORDERED: MELO15TA23 PO (01:57)
[2018-01-31 02:48] VITALS: BP 166/96
[2018-01-31] MEDS ORDERED: ESOM40CA PO (02:50)
[2018-01-31] MEDS ORDERED: POTASSIUM CHLORIDE 20 MEQ TABLET.ER. PO ONE (06:00)
[2018-01-31 06:12] VITALS: BP 152/86
[2018-01-31] MEDS ORDERED: INSULIN GLARGINE HUM REC ANLOG 15 UNIT SQ PRN (08:00)
[2018-01-31] MEDS ORDERED: PANTOPRAZOLE 40 MG TABLET. PO SCH (08:00)
[2018-01-31] MEDS ORDERED: ELECTROLYTE (NON-ICU) PROTOCOL MC PRN (08:00)
[2018-01-31] MEDS ORDERED: INSULIN GLARGINE 300 UNITS/3 ML INSULN.PEN. SQ PRN (09:00)
[2018-01-31] MEDS ORDERED: NICOTINE 21MG PATCH. TD PRN (09:00)
[2018-01-31] MEDS ORDERED: MVI, ADULT NO.4 WITH VIT K 10 ML, THIAMINE 100 MG, FOLIC ACID 1 MG in IV NORMAL SALINE ... IV SCH ×4 (09:00)
[2018-01-31] MEDS: LIPASE/PROTEAS/AMYLASE 5/17/27 CAPSULE.DR. PO SCH ×3 (09:42→17:30)
--- NOTE | 2018-01-31 10:01 | HP ---
ADMIT DATE: 01/31/2018 HISTORY OF PRESENT ILLNESS: The patient is a 57-year-old male who came in through the Emergency last night. Apparently, he has been drinking some beers and apparently had a relapse of his pancreatitis. The patient had severe pain in his epigastric area. The patient had been drinking 6-7 beers. He has a long history of chronic pancreatitis. The patient was admitted for pain relief as well as control of his pancreatitis and monitor electrolytes, which were very low on his potassium. REVIEW OF SYSTEMS: The patient denies headaches, visual changes, blurred vision, double vision. Denies chest pain, shortness of breath. Does have abdominal pain. Denies any melena, hematochezia, hematemesis presently. GENITOURINARY: Unremarkable. NEUROLOGIC: The patient is alert and oriented x 3. ALLERGIES: The patient otherwise has allergy to KELTON inhibitors with angioedema, I believe he has also been intubated as a result of those. MEDICATIONS: His home medications include diltiazem 240 daily, meloxicam 15, Zenpep 2 capsules t.i.d., Nexium 40, Toujeo 15 units daily, nicotine patch. FAMILY HISTORY: Noncontributory. SOCIAL HISTORY: The patient continues to smoke, has about a [id number] history of smoking, although he is trying to quit with the patch. He does not drink normally. However, the last couple of days, he has been drinking some beers and this is probably what precipitated. No hard drug use and no chewing tobacco. PHYSICAL EXAMINATION: GENERAL: A pleasant white male, well developed, well nourished. VITAL SIGNS: Blood pressure 150/86, respiratory rate 20, pulse 80, afebrile, oxygen saturation stable. HEENT: The patient's head was atraumatic, normocephalic. Eyes: PERRLA without jaundice. Mouth and throat were normal. NECK: Supple, no JVD or thyromegaly. LUNGS: Diminished throughout, but clear. CARDIOVASCULAR: Regular sinus rhythm, S1, S2, without murmur, rub, thrill, or extra heart sound. ABDOMEN: Soft, nontender, no rebound or guarding. Positive bowel sounds except in the epigastric area where there is marked tenderness noted in the periumbilical area with slight guarding but no rebounding, positive bowel sounds. EXTREMITIES: No clubbing, cyanosis, or edema. NEUROLOGIC: The patient is alert and oriented x 3. LABORATORY DATA: White count 14,000. Otherwise, potassium 2.9, sodium 133, sugar 150. Magnesium low at 1.6, lipase 620. PLAN: The patient is admitted for acute pancreatitis, hypokalemia, hyponatremia, low magnesium level, electrolyte imbalance. The patient was given a multivitamin mineral, thiamin IV as well as fluids, pain management. Continue to monitor blood pressure as well and make further evaluation on his electrolyte imbalance as well as his blood pressures. SKYLER BRIDGES MD DR: SLOANE/david JOB#: [id number] / [id number]
[2018-01-31 10:59] VITALS: BP 164/90
[2018-01-31 16:00] VITALS: BP 153/87
[2018-01-31 16:33] LABS: CALCIUM 8.3 mg/dL (8.5-10.1); CREATININE 0.7 mg/dL (0.7-1.3); GFR 116.7; POTASSIUM 3.9 mmol/L (3.5-5.1)
== END 2018-01-31 18:35 | disposition home or self-care (01) | DRG 439 ==
LOC: ER 22:37 → 1 SOUTH 01-31 00:51
PROVIDERS: ADMIT Family Medicine; ATTEND Family Medicine
DX: K85.20 Alcohol induced acute pancreatitis without necrosis or infection (principal); E87.1 Hypo-osmolality and hyponatremia; E83.42 Hypomagnesemia; E87.6 Hypokalemia; F17.210 Nicotine dependence, cigarettes, uncomplicated; I10 Essential (primary) hypertension; K86.1 Other chronic pancreatitis; Z88.8 Allergy status to other drugs, medicaments and biological substances; Z79.899 Other long term (current) drug therapy
CPT/HCPCS: 36415; 74022; 80048; 80053; 81001; 82947; 83690; 83735; 85025; 93005; 96361; 96365; 96376; 99406; G0480; J1815; J2270; J3475; 99285-25; J7030

== ENCOUNTER 2018-02-14 09:49 | Inpatient (IN) | payer BC ==
[~2018-02-14] VITALS: Ht 180.3 cm; Wt 83.5 kg
[~2018-02-14 09:49] MED LIST changes: +ESOM40CA PO
[2018-02-14] MEDS ORDERED: IV NORMAL SALINE 1,000ML 1,000 ML IV SCH (09:58)
[2018-02-14] MEDS ORDERED: HYDROmorphone PF 1 MG/ML DISP.SYRIN IV/SQ PRN (10:00)
--- NOTE | 2018-02-14 10:14 | PHYS DOC ---
Past History Past Medical History: Hypertension Past Surgical History: No Surgical History Smoking: Less than 1pk/day Alcohol Use: None Drug Use: None Adult General Chief Complaint Chief Complaint: ABDOMINAL PAIN HPI HPI 57-year-old male presents with epigastric abdominal pain. The patient states that he was having some mild pain last night, but around 5 AM this morning it really kicked in. He describes the pain as a sharp cramping sensation 7 out of 10 with waves of 10 out of 10. He left work and came to the ED. He was recently admitted and treated for pancreatitis in the last couple months. A CT scan was not performed at that time. The patient has had "a couple" he outs of pancreatitis previously. He denies drinking any alcohol since his last pancreatitis. He denies fever or chills. Review of Systems Review of Systems Constitutional: Denies fever or chills [] Eyes: Denies change in visual acuity, redness, or eye pain [] HENT: Denies nasal congestion or sore throat [] Respiratory: Denies cough or shortness of breath [] Cardiovascular: No additional information not addressed in HPI [] GI: Abdominal pain, nausea[] : Denies dysuria or hematuria [] Musculoskeletal: Denies back pain or joint pain [] Integument: Denies rash or skin lesions [] Neurologic: Denies headache, focal weakness or sensory changes [] Endocrine: Denies polyuria or polydipsia [] All other systems were reviewed and found to be within normal limits, except as documented in this note. Current Medications Current Medications Current Medications Medications (Trade) Dose Ordered Sig/Anel Start Time Stop Time Status Last Admin Dose Admin Hydromorphone HCl (Dilaudid) 0.5 mg PRN Q15MIN PRN 02/14/18 10:00 02/15/18 09:59 Ketorolac Tromethamine (Toradol) 30 mg 1X ONCE 02/14/18 10:00 02/14/18 10:01 UNV Prochlorperazine Edisylate (Compazine) 5 mg 1X ONCE 02/14/18 10:30 02/14/18 10:31 Sodium Chloride 1,000 ml @ 1,000 mls/hr Q1H 02/14/18 09:58 02/14/18 10:57 Allergies Allergies Allergies Coded Allergies Type Severity Reaction Last Updated Verified KELTON Inhibitors Allergy Intermediate 03/27/14 Yes lisinopril Allergy Unknown 03/27/14 Yes Physical Exam Physical Exam Constitutional: Well developed, well nourished, no acute distress, non-toxic appearance. [] HENT: Normocephalic, atraumatic, bilateral external ears normal, oropharynx moist, no oral exudates, nose normal. [] Eyes: PERRLA, EOMI, conjunctiva normal, no discharge. [] Neck: Normal range of motion, no tenderness, supple, no stridor. [] Cardiovascular:Heart rate regular rhythm, no murmur [] Lungs & Thorax: Bilateral breath sounds clear to auscultation [] Abdomen: epigastric tenderness, guarding[] Skin: Warm, dry, no erythema, no rash. [] Back: No tenderness, no CVA tenderness. [] Extremities: No tenderness, no cyanosis, no clubbing, ROM intact, no edema. [] Neurologic: Alert and oriented X 3, normal motor function, normal sensory function, no focal deficits noted. [] Psychologic: Affect normal, judgement normal, mood normal. [] EKG EKG [] Radiology/Procedures Radiology/Procedures Examination: CT abdomen pelvis with IV contrast HISTORY: History of abdominal pain, pancreatitis COMPARISON: 09/26/2017 TECHNIQUE: Axial CT images of the abdomen pelvis performed with IV contrast. Coronal and sagittal reformats are performed Exposure: One or more of the following individualized dose reduction techniques were utilized for this examination: 1. Automated exposure control 2. Adjustment of the mA and/or kV according to patient size 3. Use of iterative reconstruction technique FINDINGS: The bibasilar lungs are clear. No evidence of free air identified in the abdomen The visualized liver, adrenals grossly appears unchanged unchanged. Multiple gallstones identified within the gallbladder Stomach is mildly distended. Small amount of fluid identified just inferior to the stomach abutting the gastric wall with mild inflammatory fat stranding identified in the gastropancreatic region. There is a 6 cm fluid collection identified in the pancreatic body likely a pseudocyst. There is another fluid collection identified in the tail of the pancreas abutting the spleen measuring 5.5 cm likely a pseudocyst. Multiple calcifications identified in the pancreas. The small bowel is mildly distended. The appendix grossly appears unremarkable. Feces and gas noted in the colon. Sigmoid colon diverticulosis. Urinary bladder is mildly distended. Streak artifact from right hip prosthesis limits evaluation of the pelvis. The bilateral kidneys enhance symmetrically. No evidence of hydronephrosis. Mild aortic atherosclerosis. Moderate degenerative changes lumbar spine. IMPRESSION: 1. Mild fat stranding identified about the pancreas with fluid along the stomach wall between the pancreas and stomach likely acute pancreatitis. Correlate with lab values. 2. Fluid collections in the pancreatic body and the tail of the pancreas grossly similar to prior exam pancreatic pseudocysts. 3. Multiple calcifications identified in the pancreas likely stigmata of chronic pancreatitis. 4. Cholelithiasis. Electronically signed by: Fred Benavidez MD (02/14/2018 11:00 AM) [id number][] Course & Med Decision Making Course & Med Decision Making Pertinent Labs and Imaging studies reviewed. (See chart for details) Labs are remarkable for a glucose of 230 and a WBC of 20.2. The patient's lipase is only 339, but his CT scan is indicative of pancreatitis. I believe his lab values may just be lagging his symptoms. I discussed the patient with Dr. Hendricks and he has accepted the patient for admission for acute pancreatitis. [] Dragon Disclaimer Dragon Disclaimer This electronic medical record was generated, in whole or in part, using a voice recognition dictation system. Departure Departure: Referrals: SKYLER BRIDGES MD (PCP) CASTRO ZURITA DO Feb 14, 2018 10:14
[2018-02-14 10:24] LABS: BASO # 0.1 x10^3/uL (0.0-0.2); BASO % 0 % (0-3); EOS % 0 % (0-3); HEMATOCRIT 43.9 % (39.0-53.0); LYMPH # 1.8 x10^3/uL (1.0-4.8); LYMPH % 9 % (24-48); MEAN CORPUSCULAR HEMOGLOBIN 33 pg (25-35); MEAN CORPUSCULAR HGB CONC 34 g/dL (31-37); MEAN CORPUSCULAR VOLUME 96 fL (79-100); MONO # 0.9 x10^3/uL (0.0-1.1); MONO % 4 % (0-9); NEUT # 17.4 x10^3uL (1.8-7.7); NEUT % 86 % (31-73); PLATELET COUNT 342 x10^3/uL (140-400); RED BLOOD COUNT 4.56 x10^6/uL (4.30-5.70); RED CELL DISTRIBUTION WIDTH 13.5 % (11.5-14.5); WHITE BLOOD COUNT 20.2 x10^3/uL (4.0-11.0)
[2018-02-14] MEDS ORDERED: KETOROLAC 30 MG/ML VIAL. IV ONE (10:30)
[2018-02-14] MEDS ORDERED: PROCHLORPERAZINE 10 MG/2 ML VIAL. IV ONE (10:30)
[2018-02-14 10:31] LABS: ALBUMIN 3.4 g/dL (3.4-5.0); ALBUMIN/GLOBULIN RATIO 0.8 (1.0-1.7); CALCIUM 9.1 mg/dL (8.5-10.1); CREATININE 0.9 mg/dL (0.7-1.3); GFR 87.3; POTASSIUM 3.7 mmol/L (3.5-5.1); TOTAL BILIRUBIN 0.5 mg/dL (0.2-1.0); TOTAL PROTEIN 7.8 g/dL (6.4-8.2)
[2018-02-14] MEDS ORDERED: IOHEXOL 300 MG/ML 75 ML VIAL. IV ONE (10:45)
[2018-02-14 10:52] LABS: % BANDS 1 % (0-9); % LYMPHS 6 % (24-48); % MONOS 5 % (0-10); % SEGS 88 % (35-66)
[2018-02-14 10:53] LABS: PLT ESTIMATE ADEQUATE (ADEQUATE); TOXIC GRANULATION SLIGHT
[2018-02-14 10:54] LABS: TOXIC VACUOLATION SLIGHT
--- NOTE | 2018-02-14 11:04 | RAD ---
Examination: CT abdomen pelvis with IV contrast HISTORY: History of abdominal pain, pancreatitis COMPARISON: 09/26/2017 TECHNIQUE: Axial CT images of the abdomen pelvis performed with IV contrast. Coronal and sagittal reformats are performed Exposure: One or more of the following individualized dose reduction techniques were utilized for this examination: 1. Automated exposure control 2. Adjustment of the mA and/or kV according to patient size 3. Use of iterative reconstruction technique FINDINGS: The bibasilar lungs are clear. No evidence of free air identified in the abdomen The visualized liver, adrenals grossly appears unchanged unchanged. Multiple gallstones identified within the gallbladder Stomach is mildly distended. Small amount of fluid identified just inferior to the stomach abutting the gastric wall with mild inflammatory fat stranding identified in the gastropancreatic region. There is a 6 cm fluid collection identified in the pancreatic body likely a pseudocyst. There is another fluid collection identified in the tail of the pancreas abutting the spleen measuring 5.5 cm likely a pseudocyst. Multiple calcifications identified in the pancreas. The small bowel is mildly distended. The appendix grossly appears unremarkable. Feces and gas noted in the colon. Sigmoid colon diverticulosis. Urinary bladder is mildly distended. Streak artifact from right hip prosthesis limits evaluation of the pelvis. The bilateral kidneys enhance symmetrically. No evidence of hydronephrosis. Mild aortic atherosclerosis. Moderate degenerative changes lumbar spine. IMPRESSION: 1. Mild fat stranding identified about the pancreas with fluid along the stomach wall between the pancreas and stomach likely acute pancreatitis. Correlate with lab values. 2. Fluid collections in the pancreatic body and the tail of the pancreas grossly similar to prior exam pancreatic pseudocysts. 3. Multiple calcifications identified in the pancreas likely stigmata of chronic pancreatitis. 4. Cholelithiasis. Electronically signed by: Fred Benavidez MD (02/14/2018 11:00 AM) [id number]
[2018-02-14] MEDS ORDERED: ONDANSETRON PF 4 MG/2 ML VIAL. IV PRN (11:45)
[2018-02-14] MEDS ORDERED: IV NORMAL SALINE 1,000ML 1,000 ML IV ONE (12:30)
[2018-02-14 12:34] VITALS: BP 154/78
[2018-02-14] MEDS ORDERED: NICOTINE 21MG PATCH. TD PRN (13:00)
[2018-02-14 14:08] LABS: BACTERIA,URINE 0 /HPF (0-FEW); BILIRUBIN,URINE NEG (NEG); CLARITY,URINE CLEAR; COLOR,URINE STRAW; GLUCOSE,URINE 250 mg/dL (NEG); NITRITE,URINE NEG (NEG); RBC,URINE 0 /HPF (0-2); SQUAMOUS EPITHELIAL CELL,UR OCC /LPF; UROBILINOGEN,URINE 0.2 mg/dL (0.2 mg/dL); WBC,URINE 0 /HPF (0-4)
[2018-02-14] MEDS: HYDROmorphone PF 1 MG/ML DISP.SYRIN IV PRN ×2 (15:11→19:44)
[2018-02-14] MEDS: IV NORMAL SALINE 1,000ML 1,000 ML IV SCH ×2 (15:59→21:42)
[2018-02-14] MEDS: HEPARIN PF for SUB-Q USE 5,000 UNIT/0.5 ML VIAL. SQ SCH ×2 (16:12→21:38)
--- NOTE | 2018-02-14 16:26 | NUR ---
NURSING ADMIT NOTE: Patient arrived to room 117 via cart and accompanied by EMS personnel. Patient was oriented to patient packet, room, call light, bathroom, and TV controls.
[2018-02-14 16:34] VITALS: BP 131/64
[2018-02-14] MEDS: LIPASE/PROTEAS/AMYLASE 5/17/27 CAPSULE.DR. PO SCH (17:57)
[2018-02-14 19:43] VITALS: BP 152/65
[2018-02-14 20:31] LABS: BARBITURATES NEG (NEG); BENZODIAZEPINES NEG (NEG); CANNABINOIDS NEG (NEG); COCAINE NEG (NEG); METHADONE NEG (NEG); OPIATES POS (NEG); PHENCYCLIDINE NEG (NEG)
[2018-02-14 20:35] LABS: AMPHETAMINE/METHAMPHETAMINE NEG (NEG)
[2018-02-14 22:02] VITALS: BP 137/80
--- NOTE | 2018-02-15 02:00 | NUR ---
Report given to SAI Wall.
[2018-02-15 05:30] VITALS: BP 160/81
[2018-02-15] MEDS: HYDROmorphone PF 1 MG/ML DISP.SYRIN IV PRN (05:58)
[2018-02-15] MEDS: HEPARIN PF for SUB-Q USE 5,000 UNIT/0.5 ML VIAL. SQ SCH ×3 (06:08→21:56)
[2018-02-15 06:13] LABS: SODIUM, URINE <60 mmol/L (Not Estab.); UR POTASSIUM 16.1 mmol/L (Not Estab.)
[2018-02-15 06:21] LABS: BASO # 0.1 x10^3/uL (0.0-0.2); BASO % 1 % (0-3); EOS # 0.1 x10^3/uL (0.0-0.7); EOS % 1 % (0-3); HEMATOCRIT 37.7 % (39.0-53.0); LYMPH # 1.9 x10^3/uL (1.0-4.8); LYMPH % 23 % (24-48); MEAN CORPUSCULAR HEMOGLOBIN 33 pg (25-35); MEAN CORPUSCULAR HGB CONC 35 g/dL (31-37); MEAN CORPUSCULAR VOLUME 97 fL (79-100); MONO # 0.7 x10^3/uL (0.0-1.1); MONO % 8 % (0-9); NEUT # 5.6 x10^3uL (1.8-7.7); NEUT % 67 % (31-73); PLATELET COUNT 298 x10^3/uL (140-400); RED CELL DISTRIBUTION WIDTH 13.7 % (11.5-14.5); WHITE BLOOD COUNT 8.4 x10^3/uL (4.0-11.0)
[2018-02-15 06:31] LABS: ALBUMIN 2.6 g/dL (3.4-5.0); ALBUMIN/GLOBULIN RATIO 0.7 (1.0-1.7); CALCIUM 8.2 mg/dL (8.5-10.1); CREATININE 0.7 mg/dL (0.7-1.3); GFR 116.7; POTASSIUM 3.5 mmol/L (3.5-5.1); TOTAL BILIRUBIN 0.4 mg/dL (0.2-1.0); TOTAL PROTEIN 6.3 g/dL (6.4-8.2)
[2018-02-15] MEDS: LIPASE/PROTEAS/AMYLASE 5/17/27 CAPSULE.DR. PO SCH ×3 (08:22→17:08)
[2018-02-15] MEDS: PANTOPRAZOLE 40 MG TABLET. PO SCH (08:22)
[2018-02-15] MEDS: IV NORMAL SALINE 1,000ML 1,000 ML IV SCH ×3 (09:07→21:57)
[2018-02-15] MEDS: INSULIN GLARGINE 300 UNITS/3 ML INSULN.PEN. SQ SCH (09:09)
[2018-02-15 11:00] VITALS: BP 151/83
[2018-02-15] MEDS ORDERED: SINCALIDE 1.66 MCG in IV NORMAL SALINE 50ML 30 ML IV ONE (12:30)
--- NOTE | 2018-02-15 14:47 | RAD ---
HEPATOBILIARY SCAN WITH EJECTION FRACTION Indication: Abdominal pain and bloating for one day Comparison: CT abdomen pelvis February 14, 2018. Procedure: Serial static images are obtained of the liver and biliary system following IV administration of 5.5 mCi of 99 M technetium Choletec. After filling the gallbladder, 1.6 mcg of cholecystokinin was administered intravenously and the gallbladder ejection fraction was measured. Findings: There is homogeneous distribution throughout the liver. There is normal filling of the gallbladder and normal emptying into the biliary system and small bowel. The gallbladder ejection fraction measures 86% (normal gallbladder EF is 35% or greater). Impression: Normal hepatobiliary scan and ejection fraction. Electronically signed by: Nico Kelly MD (02/15/2018 2:43 PM) [place] [id number]
[2018-02-15 15:00] VITALS: BP 145/81
[2018-02-15] MEDS ORDERED: ONDANSETRON ODT 4 MG TAB.RAPDIS PO PRN (15:30)
[2018-02-15] MEDS ORDERED: IOHEXOL 300 MG/ML 75 ML VIAL. IV ONE (17:00)
[2018-02-15] MEDS: HYDROmorphone 2 MG TABLET PO PRN ×3 (17:06→21:28)
--- NOTE | 2018-02-15 17:22 | EKG ---
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
--- NOTE | 2018-02-15 18:06 | RAD ---
EXAM: CT ANGIOGRAPHY OF THE CHEST WITH AND WITHOUT INTRAVENOUS CONTRAST. HISTORY: Elevated d-dimer. TECHNIQUE: Computed tomographic angiography of the chest was performed before and after the intravenous administration of 73 mL Omnipaque 300. 3-D maximum intensity projections were also performed. COMPARISON: December 06, 2015. FINDINGS: Images of the upper abdomen reveal a 6.5 x 5.4 cm cystic lesion in the inferiorly in the spleen. It is incompletely visualized, but there is no clear solid component. Bone windows reveal no suspicious lesions. There are chronic left posterior rib fractures. No pulmonary emboli are identified. There is no aortic dissection or aneurysm. There are no pathologically enlarged mediastinal or axillary lymph nodes. There is no pleural or pericardial effusion. The heart is at least mildly enlarged. There are atherosclerotic calcifications of the coronary arteries. There is a cavitary lesion medially in the left lower lobe on image 43 measuring 1.6 x 0.9 cm. There is a calcified granuloma in the left base. There is mild to moderate centrilobular emphysema. IMPRESSION: 1. No pulmonary embolism. 2. 1.6 cm cavitary lesion medially in the left lower lobe. This is indeterminate but concerning for malignancy. Ongoing management is recommended. 3. Mild to moderate centrilobular emphysema. 4. 6.5 cm cystic lesion inferiorly in the spleen. Refer to today's abdominal CT for more information. 5. Cardiomegaly. *One or more of the following individualized dose reduction techniques were utilized for this examination: 1. Automated exposure control. 2. Adjustment of the mA and/or kV according to patient size. 3. Use of iterative reconstruction technique. Electronically signed by: Natividad Bourne MD (02/15/2018 6:02 PM) [facility]
--- NOTE | 2018-02-15 18:06 | RAD ---
EXAM: Bilateral lower extremity venous Doppler. HISTORY: Elevated d-dimer. COMPARISON: None. FINDINGS: Grayscale and Doppler analysis of the both lower extremity deep venous systems was performed with graded compression and augmentation. The common femoral, greater saphenous, superficial femoral, popliteal and calf veins were assessed. There is no evidence of deep venous thrombosis. IMPRESSION: 1. No evidence of deep venous thrombosis. Electronically signed by: Natividad Bourne MD (02/15/2018 6:03 PM) [facility]
[2018-02-15 20:11] VITALS: BP 158/88
[2018-02-15 23:16] VITALS: BP 146/81
[2018-02-16] MEDS: HYDROmorphone 2 MG TABLET PO PRN ×2 (01:48→05:37)
[2018-02-16] MEDS: IV NORMAL SALINE 1,000ML 1,000 ML IV SCH (05:36)
[2018-02-16] MEDS: HEPARIN PF for SUB-Q USE 5,000 UNIT/0.5 ML VIAL. SQ SCH (05:38)
[2018-02-16 05:54] VITALS: BP 154/85
[2018-02-16] MEDS: PANTOPRAZOLE 40 MG TABLET. PO SCH (08:39)
[2018-02-16] MEDS: LIPASE/PROTEAS/AMYLASE 5/17/27 CAPSULE.DR. PO SCH ×2 (08:39→12:27)
[2018-02-16] MEDS: INSULIN GLARGINE 300 UNITS/3 ML INSULN.PEN. SQ SCH (08:52)
[2018-02-16 12:34] VITALS: BP 160/87
--- NOTE | 2018-02-16 13:22 | NUR ---
Discharge Note: TIESHA JANSEN Discharge instructions and discharge home medications reviewed with Patient and a copy given. All questions have been answered and understanding verbalized. The following instructions and handouts were given: education regarding abd pain and zenpep; discharge instructions Discontinued lines and drains: Peripheral IV intact. Patient discharged to Home or [facility]
--- NOTE | 2018-02-21 15:41 | HP ---
ADMIT DATE: 02/14/2018 HISTORY OF PRESENT ILLNESS: The patient is in usual state of health until approximately 4 o'clock this morning when he began to have severe abdominal pain that doubled over in pain. The patient has a long history of pancreatitis. He came in through the Emergency Room where he was found to have a white count of over 20,000, no left shift with 20,000 white count and a sodium slightly low at 133, he is a diabetic 230. Magnesium low at 1.4; however, the patient's lipase was not terribly elevated, but a CT scan did show stranding around the head of the pancreas consistent with pancreatitis. He also had cholelithiasis and abdominal ultrasound will be entertained. PAST MEDICAL HISTORY: Includes course of alcoholic pancreatitis in the past. ALLERGIES: KELTON inhibitors as ANGIOEDEMA. MEDICATIONS: At home, diltiazem 240 daily, Meloxicam 15 mg, Zantac two capsules before meals, Nexium 40 mg, Toujeo 15 units, nicotine patch. FAMILY HISTORY: Noncontributory. SOCIAL HISTORY: The patient continues to smoke, although he has been cutting down to 10 cigarettes a day. Denies alcohol here in the last few days. The patient otherwise no hard drug use. REVIEW OF SYSTEMS: Denies headaches, vision change, blurred vision, double vision. Complains of abdominal pain 9-10/10. The patient denies chest pain, shortness of breath. Has some mild nausea, but no vomiting. Denies any melena, hematochezia, hematemesis, and neurologically stable there. PHYSICAL EXAMINATION: GENERAL: This is a pleasant white male in moderate amount of distress. VITAL SIGNS: The patient's blood pressure 130/60, respiration 18, pulse 61, afebrile. HEENT: The patient's head was atraumatic, normocephalic. Eyes: PERRLA without jaundice. Mouth and throat were normal. NECK: Supple, without JVD or thyromegaly. LUNGS: Diminished throughout, but clear. CARDIOVASCULAR: Regular sinus rhythm. ABDOMEN: Soft, diffuse tenderness primarily in the epigastric area. The head of the pancreas was extremely tender. The patient otherwise is resting fairly comfortably. The rest of the stool was Hemoccult negative. NEUROLOGIC: The patient was alert and oriented x 3. EXTREMITIES: No clubbing, cyanosis or edema. LABORATORY DATA: White count discussed earlier as well as his labs. ASSESSMENT AND PLAN: The patient was admitted for acute abdominal pain, acute abdominal pain, fluids, pain management, and monitor accordingly, very carefully get an abdominal ultrasound on him as well. SKYLER BRIDGES MD DR: SLOANE/david JOB#: [id number] / [id number]
--- NOTE | 2018-02-22 19:32 | DS ---
DATE OF DISCHARGE: 02/16/2018 HOSPITAL COURSE: The patient came in with severe abdominal pain, came in at this time through the Emergency Room. He had not been drinking and had severe mid abdominal pain that started about 5 o'clock in the morning, sharp, cramping, pain was 10/10, required IV hydromorphone for pain relief. The patient had a CT scan of his abdomen and pelvis, which did demonstrate the problem of pancreatitis as well as cholelithiasis. A PIPIDA scan was performed because of his thinking it might be related to his gallbladder; that turned out to be excellent ejection fraction. The patient also had no evidence of DVT. His CTA of his chest because of a positive D-dimer did show a 1.6 cm cavitary lesion medially in the left lower lobe and concerning for malignancy and we will follow up on that as an outpatient as well as cardiomegaly and cystic lesion. In any case, the patient made excellent progress during the rest of his hospitalization. His initial white count was over 20,000, it came down nicely to 8. Chemistries; sugars were a little bit on the high side. He had [id number] protein malnutrition and otherwise made good progress during the rest of his hospitalization. IMPRESSION: Acute on top of chronic pancreatitis, cholelithiasis, cardiomegaly, lung cavitary lesion, type 2 diabetes, severe abdominal pain. The patient will be discharged home to follow up as an outpatient. DISCHARGE MEDICATIONS: See MRAD. DISCHARGE INSTRUCTIONS: Decreased activity and make further evaluation on his care as an outpatient, followup with a probable CT scan and the like on this gentleman. SKYLER BRIDGES MD DR: SLOANE/david JOB#: [id number] / [id number]
== END 2018-02-16 13:22 | disposition home or self-care (01) | DRG 438 ==
LOC: ER 09:49 → 1 SOUTH 11:35
PROVIDERS: ADMIT Family Medicine; ATTEND Family Medicine
DX: K85.90 Acute pancreatitis without necrosis or infection, unspecified (principal); E43 Unspecified severe protein-calorie malnutrition; K80.20 Calculus of gallbladder without cholecystitis without obstruction; I10 Essential (primary) hypertension; F17.210 Nicotine dependence, cigarettes, uncomplicated; Z88.8 Allergy status to other drugs, medicaments and biological substances; K86.1 Other chronic pancreatitis; I11.9 Hypertensive heart disease without heart failure; E11.9 Type 2 diabetes mellitus without complications
CPT/HCPCS: 36415; 71275; 74177; 78226; 80053; 80307; 81001; 82436; 82947; 83690; 83735; 84133; 84300; 85007; 85025; 85379; 93005; 93970; 96361; 96374; 96375; A9537; J0780; J1170; J1815; J1885; J2805; Q0162; Q9967; 99285-25; G0479; J7030

== ENCOUNTER 2019-03-14 09:43 | Emergency (ER) | payer BC ==
[~2019-03-14] VITALS: Ht 177.8 cm; Wt 80.8 kg
[~2019-03-14 09:43] MED LIST changes: -HYDR-2762 PO; +HYDR-2765 PO; -OXYC20TA34 PO; +OXYC20TA35 PO
--- NOTE | 2019-03-14 10:24 | PHYS DOC ---
Past History Past Medical History: Hypertension, Pancreatitis, Other Past Surgical History: Other Smoking: Less than 1pk/day Additional Smoking Information: 0.5 PPD Alcohol Use: Heavy Additional Alcohol Information: 6-8 BEERS 3-4 TIMES A WEEK Drug Use: None Adult General Chief Complaint Chief Complaint: ABDOMINAL PAIN HPI HPI 58-year-old male presents with abdominal pain. Patient had some mild pain 3 days ago that went away overnight. Yesterday, the pain came back at it continues this morning. It is in the right lower quadrant. It is moderate in intensity. It is a cramping sensation. The patient has a history of pancreatitis and he believes the pain feels somewhat similar. He drinks 4-6 beers 4+ times a week. He still has his appendix and gallbladder. He denies fever or chills. Denies nausea or vomiting. Review of Systems Review of Systems Constitutional: Denies fever or chills [] Eyes: Denies change in visual acuity, redness, or eye pain [] HENT: Denies nasal congestion or sore throat [] Respiratory: Denies cough or shortness of breath [] Cardiovascular: No additional information not addressed in HPI [] GI: RLQ abdominal pain. Denies nausea, vomiting, bloody stools or diarrhea [] : Denies dysuria or hematuria [] Musculoskeletal: Denies back pain or joint pain [] Integument: Denies rash or skin lesions [] Neurologic: Denies headache, focal weakness or sensory changes [] Endocrine: Denies polyuria or polydipsia [] All other systems were reviewed and found to be within normal limits, except as documented in this note. Current Medications Current Medications Current Medications Medications (Trade) Dose Ordered Sig/Anel Start Time Stop Time Status Last Admin Dose Admin Morphine Sulfate (Morphine 2mg Syringe) 2 mg 1X ONCE 03/14/19 10:15 03/14/19 10:16 UNV Ondansetron HCl (Zofran) 4 mg 1X ONCE 03/14/19 10:15 03/14/19 10:16 UNV Sodium Chloride 1,000 ml @ 1,000 mls/hr 1X ONCE 03/14/19 10:15 03/14/19 11:14 UNV Allergies Allergies Allergies Coded Allergies Type Severity Reaction Last Updated Verified KELTON Inhibitors Allergy Intermediate 03/27/14 Yes lisinopril Allergy Intermediate 6/6/18 Yes Physical Exam Physical Exam Constitutional: Well developed, well nourished, no acute distress, non-toxic appearance. [] HENT: Normocephalic, atraumatic, bilateral external ears normal, oropharynx m oist, no oral exudates, nose normal. [] Eyes: PERRLA, EOMI, conjunctiva normal, no discharge. [] Neck: Normal range of motion, no tenderness, supple, no stridor. [] Cardiovascular:Heart rate regular rhythm, no murmur [] Lungs & Thorax: Bilateral breath sounds clear to auscultation [] Abdomen: Bowel sounds normal, soft, RLQ tenderness, no masses, no pulsatile masses. [] Skin: Warm, dry, no erythema, no rash. [] Back: No tenderness, no CVA tenderness. [] Extremities: No tenderness, no cyanosis, no clubbing, ROM intact, no edema. [] Neurologic: Alert and oriented X 3, normal motor function, normal sensory function, no focal deficits noted. [] Psychologic: Affect normal, judgement normal, mood normal. [] Current Patient Data Vital Signs Vital Signs Date Time Temp Pulse Resp B/P (MAP) Pulse Ox O2 Delivery O2 Flow Rate FiO2 03/14/19 09:57 98.1 119 16 98 Room Air EKG EKG [] Radiology/Procedures Radiology/Procedures [] Impressions: PQRS Compliance Statement: One or more of the following individualized dose reduction techniques were utilized for this examination: 1. Automated exposure control 2. Adjustment of the mA and/or kV according to patient size 3. Use of iterative reconstruction technique CT ABD PELV W/ IV CONTRST ONLY Clinical Indication: Right lower quadrant pain, elevated white blood cell count. Comparison: CT abdomen and pelvis with contrast, September 26, 2017. Technique: Helical CT imaging of the abdomen and pelvis is performed after 75 cc of Omnipaque 300 IV contrast. Oral contrast not given. Findings: Minimal atelectasis in the posterior lower lobes bilaterally. Coronary artery disease. Cardiac size normal. There is pneumobilia. There is metallic extrahepatic duct stent. There is adjacent pancreatic duct stent. The liver is homogeneous. There is cholelithiasis. There is pericholecystic fluid. Hyperenhancement of the gallbladder wall, no obvious thickening. Mild inflammation surrounding the gallbladder fundus. Spleen is homogeneous. Left adrenal gland hyperplasia and small right adrenal nodule are stable. There is no hydronephrosis. Findings of chronic calcific pancreatitis. The pancreatic pseudocyst at the pancreas tail has decreased in size from prior study now measuring up to 5.3 cm, previously 6.7 cm. The pancreatic pseudocyst near the pancreas head has resolved. No peripancreatic inflammation is identified. There is a 2.2 cm cystic structure in or along the gastric fundus. This is immediately adjacent to the pancreas tail pseudocyst as seen on coronal image 34. Finding may be due to marsupialization. Correlate to procedure history. Stomach is otherwise not well distended accentuating the wall thickness. There is no dilated small bowel. Moderate distal colon diverticulosis. Scattered stool in the colon. No colon wall thickening. The appendix is normal. Urinary bladder is normal. Coarse calcifications centrally in the prostate. Prostate is not enlarged. No pelvic free fluid. Beam hardening artifact from left hip arthroplasty. Vacuum disc phenomenon L5/S1. Grade 1 anterolisthesis of L4 on L5. Mild grade 1 retrolisthesis of L3 on L4. These findings are stable. IMPRESSION: 1. Hydropic gallbladder with cholelithiasis, pericholecystic fluid, and mild inflammation surrounding the gallbladder fundus. Findings suggest cholecystitis. Consider further evaluation with right upper quadrant ultrasound. 2. Chronic calcific pancreatitis. Pseudocyst of the pancreas tail is mildly smaller. Please see above discussion. No evidence of acute pancreatitis. 3. Stents of the common bile duct and pancreatic duct. 4. Moderate distal colon diverticulosis. Electronically signed by: Guillermo Moragn MD (03/14/2019 12:31 PM) [id number] DICTATED AND SIGNED BY: GUILLERMO MORGAN MD DATE: 03/14/19 1231 CC: CASTRO ZURITA DO; SKYLER BRIDGES MD ~ Course & Med Decision Making Course & Med Decision Making Pertinent Labs and Imaging studies reviewed. (See chart for details) The patient's labs significant for white count of 17. His CT scan shows likely acute police cystitis. See official report for more details. I discussed the patient with the surgeon, Dr. López and he agrees patient should be transferred to [facility] for further evaluation. The patient is in agreement with this plan. He will go by ambulance. I discussed the patient with the hospitalist, Dr. Bernal and he has agreed to admission. [] Dragon Disclaimer Dragon Disclaimer This electronic medical record was generated, in whole or in part, using a voice recognition dictation system. Departure Departure: Impression: Primary Impression: Cholecystitis, acute Additional Impression: Cholelithiasis Disposition: XFER SHT-TRM HOSP Condition: STABLE Referrals: SKYLER BRIDGES MD (PCP) Problem Qualifiers Additional Impression: Cholelithiasis Cholelithiasis location: gallbladder Cholecystitis presence: with cholecystitis Cholecystitis acuity: acute Biliary obstruction: without biliary obstruction Qualified Codes: K80.00 - Calculus of gallbladder with acute cholecystitis without obstruction CASTRO ZURITA DO Mar 14, 2019 10:24
[2019-03-14] MEDS: ONDANSETRON PF 4 MG/2 ML VIAL. IV ONE (10:30)
[2019-03-14] MEDS: IV NORMAL SALINE 1,000ML 1,000 ML IV ONE (10:30)
[2019-03-14] MEDS: MORPHINE SULFATE 2 MG/ML DISP.SYRIN. IV ONE ×4 (10:30→16:11)
[2019-03-14 10:58] LABS: BASO # 0.1 x10^3/uL (0.0-0.2); BASO % 1 % (0-3); EOS % 0 % (0-3); HEMATOCRIT 41.9 % (39.0-53.0); HEMOGLOBIN 14.1 g/dL (13.0-17.5); LYMPH % 6 % (24-48); MEAN CORPUSCULAR HEMOGLOBIN 33 pg (25-35); MEAN CORPUSCULAR HGB CONC 34 g/dL (31-37); MEAN CORPUSCULAR VOLUME 99 fL (79-100); MONO # 1.9 x10^3/uL (0.0-1.1); MONO % 11 % (0-9); NEUT # 14.4 x10^3uL (1.8-7.7); NEUT % 83 % (31-73); PLATELET COUNT 250 x10^3/uL (140-400); RED BLOOD COUNT 4.26 x10^6/uL (4.30-5.70); WHITE BLOOD COUNT 17.3 x10^3/uL (4.0-11.0)
[2019-03-14 11:14] LABS: ALBUMIN 3.2 g/dL (3.4-5.0); ALBUMIN/GLOBULIN RATIO 0.8 (1.0-1.7); CREATININE 0.9 mg/dL (0.7-1.3); POTASSIUM 3.8 mmol/L (3.5-5.1); TOTAL PROTEIN 7.1 g/dL (6.4-8.2)
[2019-03-14] MEDS: IOHEXOL 300 MG/ML 75 ML VIAL. IV ONE (12:05)
--- NOTE | 2019-03-14 12:34 | RAD ---
PQRS Compliance Statement: One or more of the following individualized dose reduction techniques were utilized for this examination: 1. Automated exposure control 2. Adjustment of the mA and/or kV according to patient size 3. Use of iterative reconstruction technique CT ABD PELV W/ IV CONTRST ONLY Clinical Indication: Right lower quadrant pain, elevated white blood cell count. Comparison: CT abdomen and pelvis with contrast, September 26, 2017. Technique: Helical CT imaging of the abdomen and pelvis is performed after 75 cc of Omnipaque 300 IV contrast. Oral contrast not given. Findings: Minimal atelectasis in the posterior lower lobes bilaterally. Coronary artery disease. Cardiac size normal. There is pneumobilia. There is metallic extrahepatic duct stent. There is adjacent pancreatic duct stent. The liver is homogeneous. There is cholelithiasis. There is pericholecystic fluid. Hyperenhancement of the gallbladder wall, no obvious thickening. Mild inflammation surrounding the gallbladder fundus. Spleen is homogeneous. Left adrenal gland hyperplasia and small right adrenal nodule are stable. There is no hydronephrosis. Findings of chronic calcific pancreatitis. The pancreatic pseudocyst at the pancreas tail has decreased in size from prior study now measuring up to 5.3 cm, previously 6.7 cm. The pancreatic pseudocyst near the pancreas head has resolved. No peripancreatic inflammation is identified. There is a 2.2 cm cystic structure in or along the gastric fundus. This is immediately adjacent to the pancreas tail pseudocyst as seen on coronal image 34. Finding may be due to marsupialization. Correlate to procedure history. Stomach is otherwise not well distended accentuating the wall thickness. There is no dilated small bowel. Moderate distal colon diverticulosis. Scattered stool in the colon. No colon wall thickening. The appendix is normal. Urinary bladder is normal. Coarse calcifications centrally in the prostate. Prostate is not enlarged. No pelvic free fluid. Beam hardening artifact from left hip arthroplasty. Vacuum disc phenomenon L5/S1. Grade 1 anterolisthesis of L4 on L5. Mild grade 1 retrolisthesis of L3 on L4. These findings are stable. IMPRESSION: 1. Hydropic gallbladder with cholelithiasis, pericholecystic fluid, and mild inflammation surrounding the gallbladder fundus. Findings suggest cholecystitis. Consider further evaluation with right upper quadrant ultrasound. 2. Chronic calcific pancreatitis. Pseudocyst of the pancreas tail is mildly smaller. Please see above discussion. No evidence of acute pancreatitis. 3. Stents of the common bile duct and pancreatic duct. 4. Moderate distal colon diverticulosis. Electronically signed by: Guillermo Morgan MD (03/14/2019 12:31 PM) [id number]
[2019-03-14 13:01] LABS: % ATYL 3 % (0-0); % BANDS 1 % (0-9); % LYMPHS 6 % (24-48); % MONOS 7 % (0-10); % SEGS 83 % (35-66); PLT ESTIMATE ADEQUATE (ADEQUATE)
[2019-03-14] MEDS ORDERED: IV NORMAL SALINE 50ML 50 ML ONE (13:54)
[2019-03-14] MEDS ORDERED: PIPERACILLIN/TAZOBACTAM 3.375 GM VIAL IV ONE (13:55)
[2019-03-14] MEDS: PIPERACILLIN/TAZOBACTAM 3.375 GM in IV NORMAL SALINE 50ML 50 ML IV ONE (14:03)
[2019-03-14 16:05] VITALS: BP 148/73
== END 2019-03-14 16:16 | disposition short-term general hospital (02) ==
LOC: ER 09:43
DX: K80.00 Calculus of gallbladder with acute cholecystitis without obstruction (principal); K85.90 Acute pancreatitis without necrosis or infection, unspecified; K57.30 Diverticulosis of large intestine without perforation or abscess without bleeding; K86.3 Pseudocyst of pancreas; I10 Essential (primary) hypertension; F17.200 Nicotine dependence, unspecified, uncomplicated; Z88.8 Allergy status to other drugs, medicaments and biological substances
CPT/HCPCS: 36415; 74177; 80053; 83690; 85007; 85025; 96365; 96375; 96376; 99285; J2270; J2405; J2543; Q9967; J7030

== ENCOUNTER 2019-07-27 19:49 | Emergency (ER) | payer BC ==
[~2019-07-27] VITALS: Ht 177.8 cm; Wt 79.4 kg
--- NOTE | 2019-07-27 20:37 | PHYS DOC ---
Past History Past Medical History: Diabetes, Hypertension, Pancreatitis, Other Additional Past Medical Histor: peripheral vascular disease Past Surgical History: Cholecystectomy, Other Smoking: Less than 1pk/day Alcohol Use: Heavy Drug Use: None Adult General Chief Complaint Chief Complaint: ABDOMINAL PAIN HPI HPI Patient is a 59-year-old male presents with worsening abdominal pain for the past week and a half. He was lifting, felt a strain and rib of week and a half ago. This was doing better until over last weekend when he had to go back to work and was lifting and moving again. Over the past several days he's noted a lump in his abdomen that has been increasing in size. He saw his primary care physician 3 days ago, and had a CT scan performed at [facility] that showed a big fluid-filled mass that was 4 x 10 x 6 cm and 3 x 6 x 5 cm going into the abdominal wall that could be a biliary leak.[] Review of Systems Review of Systems Constitutional: Denies fever or chills [] Eyes: Denies change in visual acuity, redness, or eye pain [] HENT: Denies nasal congestion or sore throat [] Respiratory: No chest pain or palpitations[] Cardiovascular: No additional information not addressed in HPI [] GI: See history of present illness[] : Denies dysuria or hematuria [] Musculoskeletal: Denies back pain or joint pain [] Integument: Denies rash or skin lesions [] Neurologic: Denies headache, focal weakness or sensory changes [] Endocrine: Denies polyuria or polydipsia [] All other systems were reviewed and found to be within normal limits, except as documented in this note. Allergies Allergies Allergies Coded Allergies Type Severity Reaction Last Updated Verified KELTON Inhibitors Allergy Intermediate 03/27/14 Yes lisinopril Allergy Intermediate 02/15/18 Yes Physical Exam Physical Exam Constitutional: Well developed, well nourished, no acute distress, non-toxic appearance. [] HENT: Normocephalic, atraumatic, bilateral external ears normal, oropharynx moist, no oral exudates, nose normal. [] Eyes: PERRLA, EOMI, conjunctiva normal, no discharge. [] Neck: Normal range of motion, no tenderness, supple, no stridor. [] Cardiovascular:Heart rate regular rhythm, no murmur [] Lungs & Thorax: Bilateral breath sounds clear to auscultation [] Abdomen: Bowel sounds normal, soft, mild upper abdomen tenderness, mass in the midline upper abdomen approximately 4 cm in diameter without pulsation., no pulsatile masses. [] Skin: Warm, dry, no erythema, no rash. [] Back: No tenderness, no CVA tenderness. [] Extremities: No tenderness, no cyanosis, no clubbing, ROM intact, no edema. [] Neurologic: Alert and oriented X 3, normal motor function, normal sensory function, no focal deficits noted. [] Psychologic: Affect normal, judgement normal, mood normal. [] EKG EKG EKG shows a sinus rhythm at 71 bpm, normal axis, QTC 402 ms, no ST elevations. Interpreted by me at 2114[] Radiology/Procedures Radiology/Procedures [] Course & Med Decision Making Course & Med Decision Making Pertinent Labs and Imaging studies reviewed. (See chart for details) ED course: Patient arrived, was placed in bed, and tolerated exam well. Initial consultation was made with his primary care physician who due to lack of surgical capabilities here at [facility] recommended patient be transferred to [facility]. Consultation was made with the hospita list at [facility] who graciously accepted the patient. Additionally reached out to the surgical team. They deferred on additional imaging at this time given that he had a CT scan performed with oral and IV contrast earlier today. He was transferred in improved condition. Medical decision making: Patient with an abdominal mass that may be a biliary leak. Being transferred to higher level of care.[] Dragon Disclaimer Dragon Disclaimer This electronic medical record was generated, in whole or in part, using a voice recognition dictation system. Departure Departure: Impression: Primary Impression: Bile leak Disposition: 05 TRANSFER OTHER Admitting Physician: Jakub Ambriz Condition: IMPROVED Referrals: SKYLER BRIDGES MD (PCP) VAUGHN PEÑA DO Jul 27, 2019 20:37
[2019-07-27] MEDS ORDERED: CLOP75TA57 PO (20:41)
[2019-07-27] MEDS ORDERED: [UNRECOGNIZED DRUG - OTHER] (20:41)
[2019-07-27] MEDS ORDERED: INSU100I13 SQ (20:41)
[2019-07-27] MEDS ORDERED: TRAM50TA PO (20:41)
[2019-07-27] MEDS ORDERED: IBUP800T19 PO (20:43)
[2019-07-27] MEDS ORDERED: VARE1TAB20 PO (20:43)
[2019-07-27 20:45] LABS: BASO # 0.1 x10^3/uL (0.0-0.2); BASO % 1 % (0-3); EOS # 0.1 x10^3/uL (0.0-0.7); EOS % 1 % (0-3); HEMATOCRIT 28.9 % (39.0-53.0); HEMOGLOBIN 9.3 g/dL (13.0-17.5); LYMPH # 2.2 x10^3/uL (1.0-4.8); LYMPH % 17 % (24-48); MEAN CORPUSCULAR HEMOGLOBIN 29 pg (25-35); MEAN CORPUSCULAR HGB CONC 32 g/dL (31-37); MEAN CORPUSCULAR VOLUME 91 fL (79-100); MONO # 1.4 x10^3/uL (0.0-1.1); MONO % 11 % (0-9); NEUT % 71 % (31-73); PLATELET COUNT 509 x10^3/uL (140-400); RED CELL DISTRIBUTION WIDTH 16.4 % (11.5-14.5); WHITE BLOOD COUNT 12.7 x10^3/uL (4.0-11.0)
[2019-07-27 21:00] VITALS: BP 140/72
[2019-07-27 21:04] LABS: ALBUMIN 2.8 g/dL (3.4-5.0); ALBUMIN/GLOBULIN RATIO 0.6 (1.0-1.7); CALCIUM 9.1 mg/dL (8.5-10.1); CREATININE 0.8 mg/dL (0.7-1.3); GFR 99.3; MAGNESIUM 1.6 mg/dL (1.8-2.4); POTASSIUM 3.7 mmol/L (3.5-5.1); TOTAL BILIRUBIN 0.2 mg/dL (0.2-1.0); TOTAL PROTEIN 7.4 g/dL (6.4-8.2)
--- NOTE | 2019-07-30 14:46 | EKG ---
[address] [address] Test Date: 2019-07-27 Test Time: 21:11:23 Pat Name: TIESHA JANSEN Department: Room: Gender: M Bakery Chef: : 1960 Requested By: VAUGHN PEÑA Order Number: [id number] Reading MD: Naga Fraga MD Measurements Intervals [place] Rate: 71 P: 56 WV: 190 QRS: 56 QRSD: 100 T: 61 QT: 370 QTc: 402 Interpretive Statements SINUS RHYTHM Electronically Signed On 09-06-2019 8:12:22 RESAW FEEDER by Naga Fraga MD
== END 2019-07-27 22:07 | disposition short-term general hospital (02) ==
LOC: ER 19:49
DX: K83.8 Other specified diseases of biliary tract (principal); E11.9 Type 2 diabetes mellitus without complications; I10 Essential (primary) hypertension; F17.200 Nicotine dependence, unspecified, uncomplicated; F10.20 Alcohol dependence, uncomplicated; Z90.49 Acquired absence of other specified parts of digestive tract; Z88.8 Allergy status to other drugs, medicaments and biological substances; Y90.9 Presence of alcohol in blood, level not specified
CPT/HCPCS: 36415; 80053; 83690; 83735; 85025; 85610; 85730; 93005; 99285

== ENCOUNTER → 2019-08-27 | Outpatient (CLI) | payer BC ==
[~2019-08-27] MED LIST changes: +CLOP75TA57 PO; +IBUP800T19 PO; +IOHEXOL 240 MG/ML 50ML VIAL. ONE; +IOHEXOL 300 MG/ML 75 ML VIAL. IV ONE; +TRAM50TA PO; +VARE1TAB20 PO; +[UNRECOGNIZED DRUG - OTHER]
--- NOTE | 2019-08-27 14:58 | RAD ---
CT ABD PELV W/ORAL IV CONTRAST Indication: Abdominal abscess Technique: Postcontrast CT imaging was performed of the abdomen and pelvis, multiplanar reconstruction images submitted. Oral contrast was also given. One or more of the following individualized dose reduction techniques were utilized for this examination: 1. Automated exposure control 2. Adjustment of the mA and/or kV according to patient size 3. Use of iterative reconstruction technique. Comparison: August 03, 2019 Findings: There is again pigtail catheter in the ventral superior abdomen. Previously there was a fluid collection superficial to the fascia which has resolved, mild amorphous residual density in the ventral subcutaneous fat just inferior to the catheter. Previously seen hypodense cystic collection at the tail of the pancreas measuring about 4 cm transverse by 3 cm AP by 3.4 cm cc is somewhat smaller as previously about 4.6 cm transverse by 3.3 cm AP by 3.4 cm cc. There is again stent in the common bile duct and also small plastic stent in the pancreatic duct. There are again pancreatic calcifications. There is again visualization of the pancreatic duct about 0.3 cm, similar. There again has been cholecystectomy. There is again atrophy of the pancreatic parenchyma. No new pancreatic or peripancreatic fluid collection is identified. There is somewhat increased pneumobilia. Both kidneys enhance, no hydronephrosis. There is atherosclerotic calcification of the abdominal aorta. There is no adrenal nodularity. No new focal abnormality is identified of the spleen or liver. There is no pleural fluid. There is old left posterior 10th rib fracture. Bowel is not significantly dilated. There is no free air. Normal appendix is visualized. There is right hip arthroplasty. There is multilevel lumbar facet degenerative change, grade 1 anterior spondylolisthesis at L4-5. There is degenerative disc disease base and L5-S1. IMPRESSION: 1. Previously seen ventral abdominal abscess has resolved, minimal amorphous density near the catheter. 2. Previously seen presumable pseudocyst of the tail of the pancreas is somewhat smaller. There are again multiple pancreatic calcifications, evidence of sequela of chronic pancreatitis. There are again stents as stated. Electronically signed by: Rancho Nunes MD (08/27/2019 2:55 PM) [id number]
== END | disposition home or self-care (01) ==
LOC: CT 11:40
PROVIDERS: ATTEND Surgery
DX: K86.3 Pseudocyst of pancreas (principal); K65.1 Peritoneal abscess; K86.89 Other specified diseases of pancreas; I70.0 Atherosclerosis of aorta; M43.16 Spondylolisthesis, lumbar region; K86.1 Other chronic pancreatitis; Z90.49 Acquired absence of other specified parts of digestive tract
CPT/HCPCS: 74177; Q9967

== ENCOUNTER 2020-01-04 01:14 | Emergency (ER) | payer BC ==
[~2020-01-04] VITALS: Ht 177.8 cm; Wt 76.6 kg
[~2020-01-04 01:14] MED LIST changes: -IOHEXOL 240 MG/ML 50ML VIAL. ONE; -IOHEXOL 300 MG/ML 75 ML VIAL. IV ONE
--- NOTE | 2020-01-04 01:36 | PHYS DOC ---
Past History Past Medical History: Alcoholism, Diabetes, Gallstones, Hypertension, Pancreatitis, Vascular Disease Additional Past Medical Histor: peripheral vascular disease Past Medical History Midline Hernia, Stents Common Duct, Pancreas Past Surgical History: Cholecystectomy, Hip Replacement, Other Additional Past Surgical Histo: reattachment of rt bicep; reconstruction rt knee Past Surgical History rt hip Smoking: Less than 1pk/day Alcohol Use: Occasionally Drug Use: None General Adult EDM: Chief Complaint: ABDOMINAL PAIN HPI: HPI: "...I am having some down here on my lower Rt. abdomen since .after dinner...It quite severe... at times..." "I think.. I still got my appendix..." Patient is a 59 year old male who presents with above hx and complaints of severe Rt. lower abdomen pain since after dinner. Patient denies any intake of bad food. Patient had a eaten pizza at this meal. The patient denies any problems with urination or defecation. Patient stated he had a normal stool today. There was no blood or dark tarry stools.. Pain started after eating dinner yesterday. Patient states he did have 6 beers on Tuesday,but has not drank since then. Patient states he has been taking ibuprofen 600 mg every 4 hours for the right lower abdomen pain. Patient denies any history of kidney stones or colitis with him or family members. Patient denies any history of hepatitis but is obviously jaundice on this visit. Patient has had episodes of alcoholic pancreatitis in the past. Patient states however he has not consumed alcohol is excessively for months. Patient did have a cholecystectomy and some post operation complications back in 2018. Pt. reports pancreatic and liver stent, with complication of bile leak. Patient has a chronic mid line hernia that is is easily reducible and is currently nontender. Patient has history of diabetes secondary to his pancreatitis, hypertension, GERD, peripheral vascular disease, with claudication ischemia particularly in right leg and right hip replacement. Patient does continue to smoke. Patient states he has been compliance with his Plavix for hi s peripheral vascular disease. Patient denies any recent travel outside the [place] area. Patient denies any specific ill contacts. Has had recent stressors in September consisting of loss of job at [employer], separation from his , and loss of home. Does not meet COVID19 testing per Ernesto 01/02/20. Review of Systems: Review of Systems: Constitutional: Denies fever or chills Eyes: Denies change in visual acuity HENT: Denies nasal congestion or sore throat Respiratory: Denies cough or shortness of breath Cardiovascular: Denies chest pain or edema GI: Rt. lower abdominal pain, nausea. Denies vomiting, bloody stools or diarrhea : Denies dysuria Musculoskeletal: Denies back pain or joint pain Integument: Denies rash Neurologic: Denies headache, focal weakness or sensory changes Endocrine: Denies polyuria or polydipsia Lymphatic: Denies swollen glands Psychiatric: Denies depression or anxiety Heart Score: Risk Factors: Risk Factors: DM, Current or recent (<one month) smoker, HTN, HLP, family history of CAD, obesity. Risk Scores: Score 0 - 3: 2.5% MACE over next 6 weeks - Discharge Home Score 4 - 6: 20.3% MACE over next 6 weeks - Admit for Clinical Observation Score 7 - 10: 72.7% MACE over next 6 weeks - Early Invasive Strategies Family History: Family History: Noncontributory to presentation Current Medications: Current Meds: See nursing for home meds Allergies: Allergies: Allergies Coded Allergies Type Severity Reaction Last Updated Verified KELTON Inhibitors Allergy Intermediate 07/27/19 Yes lisinopril Allergy Intermediate 07/27/19 Yes Physical Exam: PE: Constitutional: Patient reports acute distress, ill in appearance and obviously jaundice HENT: Normocephalic, atraumatic, bilateral external ears normal, oropharynx moist, no oral exudates, nose normal. [] Eyes: PERRLA, EOMI, conjunctiva icteric, no discharge. [] Glasses. Neck: Normal range of motion, no tenderness, supple, no stridor. [] Cardiovascular: Tachycardia heart rate regular rhythm, no murmur [] PMI is slightly to the left Lungs & Thorax: Bilateral breath sounds equal at apex with scattered wheezes on auscultation [] Abdomen: Bowel sounds decreased, soft, right lower abdomen tenderness, liver edge,, no pulsatile masses. Old surgery scars. Midline hernia that is easily reducible. Patient does appear to have a slight fluid wave. Skin: Warm, dry, no erythema, no rash. Jaundice Back: No tenderness, no CVA tenderness on percussion Extremities: No tenderness, no cyanosis, no clubbing, ROM intact, no edema. No true psoas sign. Venous stasis changes. Decreased pulses and dorsal pedis particularly on right] Scar Rt. hip. Neurologic: Alert and oriented X 3, moves extremities on request, does have decreased sensory in right plantar, no focal deficits noted. [] Psychologic: Affect anxious, judgement normal, mood normal. [] Current Patient Data: Vital Signs: Vital Signs Date Time Temp Pulse Resp B/P (MAP) Pulse Ox O2 Delivery O2 Flow Rate FiO2 01/04/20 01:23 102 18 196/107 (136) 96 Room Air EKG: EKG: My interpretation EKG shows a sinus rhythm at 93 bpm. No findings of acute STEMI with contralateral changes. [] Radiology/Procedures: Radiology/Procedures: My interpretation of abdomen film shows some chronic lung changes with a calcified granuloma on left. There is a old healing liver rib fractures on left. There is no free air under the diaphragm. Does appear that have increased stool. There are stents which appear to be in the common bile duct area and pancreatic area. No obvious findings of dilated loops of bowel or ileus. Has a right hip arthroplasty . [] Course & Med Decision Making: Course & Med Decision Making Pertinent Labs and Imaging studies reviewed. (See chart for details) Discussed presentation, testing and treatment plan with , will transfer to [facility] for further eval. and tx. . CT pending at shift change. Suspect Stent or Common duct obstruction. Impression- 1. Abdomen pain 2. Accelerated hypertension 3. Jaundice-elevated AST 132 ALT 267, and alk phos 893, with elevated bilirubin total 16.5 and direct 14.2 4. Leukocytosis 20.3 with segs 74 and bands 10 5. Peripheral vascular disease (more right leg than left-follows at [facility]) 6. Tobacco use 7. Malnutrition albumin 2.3 8. History of common duct and pancreatic duct obstruction with placement of stents 2018 9. History of cholecystectomy 2018 10. Hyponatremia 127 11. Critical hypokalemia 2.9 12. Diabetes glucose currently 166 [] Adriane Disclaimer: Adriane Disclaimer: This electronic medical record was generated, in whole or in part, using a voice recognition dictation system. Departure Departure: Disposition: HOME/RESIDENCE PRIOR TO ADM Condition: STABLE Referrals: SKYLER BRIDGES MD (PCP) Adriane Disclaimer This chart was dictated in whole or in part using Voice Recognition software in a busy, high-work load, and often noisy Emergency Department environment. It may contain unintended and wholly unrecognized errors or omissions. ERICK MCKEON MD Jan 04, 2020 01:36
[2020-01-04] MEDS ORDERED: KETOROLAC 30 MG/ML VIAL. IVP ONE (02:00)
[2020-01-04] MEDS ORDERED: ONDANSETRON PF 4 MG/2 ML VIAL. IVP ONE (02:00)
[2020-01-04] MEDS ORDERED: FAMOTIDINE 20 MG/2 ML VIAL IVP ONE (02:00)
[2020-01-04] MEDS ORDERED: IV RINGERS SOLUTION,LACTATED 1,000 ML IV SCH (02:00)
[2020-01-04 02:18] LABS: ALBUMIN 2.3 g/dL (3.4-5.0); CALCIUM 9.7 mg/dL (8.5-10.1); CREATININE 0.8 mg/dL (0.7-1.3); DIRECT BILIRUBIN 14.2 mg/dL (0.0-0.2); GFR 99.3; TOTAL BILIRUBIN 16.5 mg/dL (0.2-1.0)
[2020-01-04 02:25] LABS: POTASSIUM 2.9 mmol/L (3.5-5.1)
--- NOTE | 2020-01-04 02:25 | RAD ---
PA chest and upright and supine AP abdomen x-ray HISTORY: Abdominal pain. FINDINGS: Mild tortuosity descending thoracic aorta. Heart size normal. Calcified granuloma left lung base. No pulmonary opacities or pleural effusions. Old nonunion left posterior rib fractures stable. No pneumoperitoneum. Cholecystectomy clips. Metallic stent presumably region of the common bile duct adjacent which is a pancreatic duct stent, these were present on prior imaging. Right hip arthroplasty. Mild volume of stool. No dilated bowel loops or abnormal air-fluid levels. IMPRESSION: No acute process in the chest. No bowel obstruction evident. Biliary and pancreatic ductal stents again noted. Electronically signed by: Smith Lazo MD (01/04/2020 2:23 AM) [id number]
[2020-01-04 02:34] LABS: BASO # 0.2 x10^3/uL (0.0-0.2); BASO % 1 % (0-3); EOS # 0.1 x10^3/uL (0.0-0.7); EOS % 0 % (0-3); HEMATOCRIT 36.5 % (39.0-53.0); HEMOGLOBIN 12.2 g/dL (13.0-17.5); LYMPH # 9.5 x10^3/uL (1.0-4.8); LYMPH % 47 % (24-48); MEAN CORPUSCULAR HEMOGLOBIN 31 pg (25-35); MEAN CORPUSCULAR HGB CONC 33 g/dL (31-37); MEAN CORPUSCULAR VOLUME 94 fL (79-100); MONO # 1.3 x10^3/uL (0.0-1.1); MONO % 7 % (0-9); NEUT # 9.2 x10^3uL (1.8-7.7); NEUT % 46 % (31-73); PLATELET COUNT 332 x10^3/uL (140-400); RED CELL DISTRIBUTION WIDTH 18.2 % (11.5-14.5); WHITE BLOOD COUNT 20.3 x10^3/uL (4.0-11.0)
[2020-01-04 02:50] LABS: % BANDS 10 % (0-9); % LYMPHS 8 % (24-48); % MONOS 8 % (0-10); % SEGS 74 % (35-66)
[2020-01-04 02:52] LABS: PLT ESTIMATE ADEQUATE (ADEQUATE)
[2020-01-04 03:32] LABS: BARBITURATES NEG (NEG); BENZODIAZEPINES NEG (NEG); CANNABINOIDS NEG (NEG); COCAINE NEG (NEG); METHADONE NEG (NEG); OPIATES POS (NEG); PHENCYCLIDINE NEG (NEG)
[2020-01-04 03:33] LABS: BILIRUBIN,URINE LARGE (NEG); CLARITY,URINE CLEAR; COLOR,URINE YELLOW; GLUCOSE,URINE NEG (NEG); NITRITE,URINE NEG (NEG); RBC,URINE 0 /HPF (0-2)
[2020-01-04 03:34] LABS: BACTERIA,URINE 0 /HPF (0-FEW); SQUAMOUS EPITHELIAL CELL,UR OCC /LPF
[2020-01-04 03:39] LABS: AMPHETAMINE/METHAMPHETAMINE NEG (NEG)
[2020-01-04] MEDS ORDERED: cefTRIAXone SODIUM 1 GM VIAL ONE (03:42)
[2020-01-04] MEDS ORDERED: IV NORMAL SALINE 50ML 50 ML ONE (03:42)
[2020-01-04] MEDS ORDERED: POTASSIUM CHLORIDE 20MEQ 100 ML IV ONE (03:43)
[2020-01-04] MEDS ORDERED: SODIUM BICARBONATE 50 MEQ/50 ML VIAL. ONE (03:43)
[2020-01-04] MEDS ORDERED: IOHEXOL 240 MG/ML 50ML VIAL. ONE (03:43)
[2020-01-04] MEDS ORDERED: POTASSIUM CHLORIDE 20MEQ 100 ML IV SCH (03:45)
[2020-01-04] MEDS ORDERED: CONTRAST GIVEN MC PRN (04:00)
[2020-01-04] MEDS: POTASSIUM CHLORIDE 20MEQ 100 ML IV ONE ×2 (04:00→04:52)
[2020-01-04] MEDS ORDERED: SODIUM BICARB ADULT 8.4% 50 MEQ/50 ML DISP.SYRIN. IV ONE (04:00)
[2020-01-04] MEDS ORDERED: IOHEXOL 300 MG/ML 75 ML VIAL. IV ONE (04:30)
[2020-01-04] MEDS: POTASSIUM CHLORIDE 10MEQ 100 ML IV SCH ×2 (05:00→05:56)
--- NOTE | 2020-01-04 05:34 | RAD ---
CT abdomen and pelvis with contrast PQRS statement: CT scans at this facility use dose reduction including either automated exposure control, iterative reconstructions, and /or weight based radiation dosing via mA and kV modification when appropriate to reduce radiation dose to as low as reasonably achievable. With contrast Contrast: 75 mL Omnipaque 300 intravenous contrast and oral contrast. HISTORY: Right lower quadrant abdominal pain. COMPARISON: CT abdomen and pelvis August 27, 2019. Abdomen findings: 4 mm linear nodule or scar right middle lobe image 8 outside [id number] on the prior study. Coronary calcified plaque. Mild reflux of contrast lower esophagus. Lumbar disc disease and facet arthritis with spinal canal stenoses likely severe at L4-5. 1 cm right adrenal nonspecific nodule stable. Left adrenal nodular hyperplasia stable. Kidneys, spleen and liver are unremarkable. There is intrahepatic and extrahepatic biliary ductal dilation which is new, pneumobilia no longer present, dilated common duct leading up to the biliary ductal stent at the head of the pancreas. There is also pancreatic stent at the head of the pancreas. There is a 3 cm soft tissue density likely mass of the head of the pancreas and there is atrophy and calcifications of the tail the pancreas again demonstrated. Supraumbilical ventral abdominal wall hernia containing a segment of transverse colon measuring 9 x 4 cm. No small bowel obstruction. No inflammatory or obstructive changes of the herniated large bowel however there is some edema of the herniated fat. There is very mild perihepatic free fluid. Pelvis findings: Mild dependent pelvic fluid. Bladder, prostate, rectum unremarkable. Right hip arthroplasty. IMPRESSION: 1. Development of prominent biliary ductal dilation new since the prior exam leading up to the biliary stent at the head of the pancreas indicating obstruction of the stent. There is also pancreatic stent present. There is a 3 cm soft tissue density at the head of pancreas, previously measured 2 cm, this could indicate a tumor of the head of the pancreas, versus enlargement from pancreatitis although no significant edema is present to suggest acute pancreatitis otherwise. 2. Supraumbilical ventral abdominal wall hernia containing a segment of the transverse colon. No evidence of bowel obstruction or inflammation. There is mild edema of the herniated fat within the hernia sac. Electronically signed by: Smith Lazo MD (01/04/2020 5:31 AM) [id number]
--- NOTE | 2020-01-04 06:12 | EKG ---
[address] [address] Test Date: 2020-01-04 Test Time: 01:48:23 Pat Name: TIESHA JANSEN Department: Room: Gender: M Cougar Hunter: : 1960 Requested By: ERICK MCKEON Order Number: [id number] Reading MD: James Rey Measurements Intervals [place] Rate: 93 P: 59 IA: 168 QRS: 64 QRSD: 104 T: 34 QT: 362 QTc: 453 Interpretive Statements SINUS RHYTHM NORMAL ECG Electronically Signed On 01-04-2020 8:25:25 CDT by James Rey
[2020-01-04 07:15] VITALS: BP 170/80
[2020-01-04] MEDS ORDERED: MORPHINE SULFATE 10 MG/ML SYRINGE. ONE (07:43)
[2020-01-04] MEDS ORDERED: MORPHINE SULFATE 10 MG/ML SYRINGE. SQ ONE (07:45)
== END 2020-01-04 07:48 | disposition short-term general hospital (02) ==
LOC: ER 01:14
DX: R17 Unspecified jaundice (principal); R74.8 Abnormal levels of other serum enzymes; D72.829 Elevated white blood cell count, unspecified; I10 Essential (primary) hypertension; I73.9 Peripheral vascular disease, unspecified; E46 Unspecified protein-calorie malnutrition; K86.89 Other specified diseases of pancreas; K83.1 Obstruction of bile duct; E87.1 Hypo-osmolality and hyponatremia; E87.6 Hypokalemia; E11.9 Type 2 diabetes mellitus without complications; K21.9 Gastro-esophageal reflux disease without esophagitis; F17.200 Nicotine dependence, unspecified, uncomplicated; Z68.24 Body mass index [BMI] 24.0-24.9, adult; Z90.49 Acquired absence of other specified parts of digestive tract; Z88.8 Allergy status to other drugs, medicaments and biological substances
CPT/HCPCS: 36415; 74022; 74177; 80048; 80076; 80307; 81001; 82150; 82550; 83605; 83615; 83690; 84484; 85007; 85025; 85610; 85730; 86705; 86709; 86803; 87040; 87340; 93005; 96365; 96366; 96367; 96372; 96375; 99285; G0480; J0696; J1885; J2270; J2405; J3480; J3490; J7120; Q9967

== ENCOUNTER 2020-07-22 10:02 | Emergency (ER) | payer BC ==
[~2020-07-22] VITALS: Ht 180.3 cm; Wt 81.6 kg
[2020-07-22] MEDS ORDERED: CHLO1CAP50 PO (11:42)
--- NOTE | 2020-07-22 11:43 | PHYS DOC ---
Past History Past Medical History: Alcoholism, Diabetes, Hypertension, Other Additional Past Medical Histor: ON BLOOD THINNER FOR VASCULAR DISEASE IN RIGHT LOWER LEG Past Surgical History: Cholecystectomy, Other Additional Past Surgical Histo: VASCULAR LEG SURGERY 8-20; I&D RIGHT LEG; R HIP REPLACE; R KNEE RECONST Smoking: Less than 1pk/day Alcohol Use: Heavy Drug Use: None Adult General Chief Complaint Chief Complaint: WITHDRAWAL HPI HPI Patient is a 60-year-old male presenting for help with alcohol withdrawals. He is an alcoholic. Admits to drinking 8-12 beers daily. Reports this is a chronic problem. Patient reports significant life-changing events in recent times and wanting to become sober. He is currently under the watch of his daughter and son-in-law who is a pharmacist. They are in the process of assisting patient with getting placed in an outpatient long-term rehab program. Patient reports trying to cut cold turkey but has had difficulty in doing so. Reports last drink was this morning, reports drinking half a glass of champagne due to him experiencing shakes and anxiousness. Prior to drink prior to arrival this morning, patient reports drinking half a glass bottle of champagne approximately 48 hours prior. He is wanting to cut down at this time. He is staying at his daughter's residence until he can be placed in outpatient setting. Patient son-in-law recommended he seek guidance and advice on potential medications that could help with withdrawals and patient's path to sobriety until he can be placed. Review of Systems Review of Systems Fourteen body systems of review of systems have been reviewed. See HPI for pertinent positives and negative responses, other hernández all other systems are negative, non-pertinent or non-contributory Allergies Allergies Allergies Coded Allergies Type Severity Reaction Last Updated Verified KELTON Inhibitors Allergy Intermediate 07/22/20 Yes lisinopril Allergy Intermediate 07/22/20 Yes Physical Exam Physical Exam Constitutional: Well developed, well nourished, no acute distress, non-toxic appearance. HENT: Normocephalic, atraumatic, bilateral external ears normal, oropharynx moist, no oral exudates, nose normal. Eyes: PERRLA, EOMI, conjunctiva normal, no discharge. Neck: Normal range of motion, no tenderness, supple, no stridor. Cardiovascular: Heart rate regular, sinus rhythm, no murmurs rubs or gallops Lungs & Thorax: Bilateral breath sounds clear to auscultation Abdomen: Bowel sounds normal, soft, no tenderness, no masses, no pulsatile masses. Nonsurgical abdomen, no peritoneal signs Skin: Warm, dry, no erythema, no rash. Back: No tenderness, no CVA tenderness. Extremities: No tenderness, no cyanosis, no clubbing, ROM intact, no edema. Neurologic: Alert and oriented X 3, grossly normal motor & sensory function, no focal deficits noted. Psychologic: Affect normal, judgement normal, mood normal. Current Patient Data Vital Signs Vital Signs Date Time Temp Pulse Resp B/P (MAP) Pulse Ox O2 Delivery O2 Flow Rate FiO2 07/22/20 10:20 98.2 79 18 174/63 (100) 98 Room Air EKG EKG [] Radiology/Procedures Radiology/Procedures [] Heart Score Risk Factors: Risk Factors: DM, Current or recent (<one month) smoker, HTN, HLP, family history of CAD, obesity. Risk Scores: Risk Factors: DM, Current or recent (<one month) smoker, HTN, HLP, family history of CAD, obesity. Course & Med Decision Making Course & Med Decision Making Discussed patient's case in length. Comprehensive history and physical exam n onconcerning for any emergent and/or surgical findings I do believe patient is actively trying to become sober. He is in a better social situation with better home support than he has ever had. I discussed several medications with patient's and the risks and benefits of them all I also discussed case with patient's primary care physician. Joint decision to start short-term Chlordiazepoxide with extremely close outpatient follow-up within upcoming 72 hours with PCP unless otherwise placed in rehabilitation center prior to then I discussed plan of care with patient. Risks and benefits reviewed. Patient has full capacity, agreed to plan as stated. He understands the importance of taking medications as scheduled. He understands the potential risks of drinking while on this medication which include respiratory depression and Strict return precautions were discussed with good understanding by patient, all questions and concerns addressed prior to ER departure in stable condition Dragon Disclaimer Dragon Disclaimer This electronic medical record was generated, in whole or in part, using a voice recognition dictation system. Departure Departure: Impression: Primary Impression: Alcohol dependence Disposition: 01 DC HOME SELF CARE/HOMELESS Condition: STABLE Referrals: SKYLER BRIDGES MD (PCP) Patient Instructions: Alcohol Withdrawal, Alcohol and Drug Addiction, Finding Treatment Additional Instructions: As discussed, please call your primary care physician immediately after ER departure to schedule outpatient follow-up in upcoming 72 hours You were given medication to assist with your alcohol withdrawals while you attempt to get placement in outpatient setting for alcohol rehab Please used prescribed medication as instructed, please refer to the following taper regarding use: EtOH withdrawal Day 1: 50mg q6h Day 2: 25mg q6h Day 3: 25mg q12h Day 4: 25mg at night (Rx fifteen 25mg tabs) Max 300mg per 24 hours If any concerning signs or symptoms present prior to outpatient follow-up please do not hesitate to come back for repeat evaluation It was a pleasure to take care of you and I wish you speedy recovery and success on your rectus variety Scripts Chlordiazepoxide/Clidinium Br (CHLORDIAZEPOXIDE-CLIDINIUM CAP) 1 Each Capsule 1 EACH PO CONT for ALOCHOL WITHDRAWAL for 4 Days, #11 CAP USE THE FOLLOWING TAPER FOR ETOH WITHDRAWAL: DAY 1: 50MG Q6H DAY 2: 25MG Q6H DAY 3: 25MG Q12H DAY 4: 25MG AT NIGHT MAXIMUM OF 300MG PER 24 HOURS Prov: WILBERT MOSQUERA DO 07/22/20 WILBERT MOSQUERA DO Jul 22, 2020 11:43
[2020-07-22 11:55] VITALS: BP 175/83
== END 2020-07-22 11:59 | disposition home or self-care (01) ==
LOC: ER 10:02
DX: F10.239 Alcohol dependence with withdrawal, unspecified (principal); E11.9 Type 2 diabetes mellitus without complications; I10 Essential (primary) hypertension; F17.200 Nicotine dependence, unspecified, uncomplicated; Z88.8 Allergy status to other drugs, medicaments and biological substances; Y90.9 Presence of alcohol in blood, level not specified
CPT/HCPCS: 99284

== ENCOUNTER → 2020-12-13 | Outpatient (CLI) | payer BC ==
[~2020-12-13] MED LIST changes: +CHLO1CAP56 PO
[2020-12-13 13:04] LABS: BASO # 0.3 x10^3/uL (0.0-0.2); BASO % 3 % (0-3); EOS # 0.1 x10^3/uL (0.0-0.7); EOS % 1 % (0-3); HEMATOCRIT 30.9 % (39.0-53.0); HEMOGLOBIN 10.5 g/dL (13.0-17.5); LYMPH # 3.3 x10^3/uL (1.0-4.8); LYMPH % 32 % (24-48); MEAN CORPUSCULAR HEMOGLOBIN 31 pg (25-35); MEAN CORPUSCULAR HGB CONC 34 g/dL (31-37); MEAN CORPUSCULAR VOLUME 90 fL (79-100); MONO # 2.7 x10^3/uL (0.0-1.1); MONO % 26 % (0-9); NEUT % 39 % (31-73); PLATELET COUNT 266 x10^3/uL (140-400); RED BLOOD COUNT 3.45 x10^6/uL (4.30-5.70); WHITE BLOOD COUNT 10.4 x10^3/uL (4.0-11.0)
[2020-12-13 13:11] LABS: CALCIUM 8.9 mg/dL (8.5-10.1); CREATININE 0.8 mg/dL (0.7-1.3); DIRECT BILIRUBIN 6.3 mg/dL (0.0-0.2); GFR 98.9; POTASSIUM 3.2 mmol/L (3.5-5.1); TOTAL BILIRUBIN 7.2 mg/dL (0.2-1.0); TOTAL PROTEIN 6.8 g/dL (6.4-8.2)
[2020-12-13 16:54] LABS: % EOS 2 % (0-5); % LYMPHS 15 % (24-48); % MONOS 6 % (0-10); % SEGS 77 % (35-66)
[2020-12-13 16:55] LABS: ANISOCYTOSIS SLIGHT; HYPOCHROMIA SLIGHT; PLT ESTIMATE ADEQUATE (ADEQUATE); STOMATOCYTES FEW; TARGET CELLS OCC
== END ==
LOC: LAB 11:45
PROVIDERS: ATTEND Family Medicine
DX: E11.65 Type 2 diabetes mellitus with hyperglycemia (principal); R94.5 Abnormal results of liver function studies; E61.1 Iron deficiency
CPT/HCPCS: 36415; 80048; 80076; 82977; 83540; 85007; 85025

== ENCOUNTER 2021-12-06 19:07 | Emergency (ER) | payer BC ==
[~2021-12-06] VITALS: Ht 180.3 cm; Wt 91.0 kg
[~2021-12-06 19:07] MED LIST changes: -LIPA1CAP12 PO; +LIPA1CAP31 PO
[2021-12-06 20:45] LABS: BASO % 1 % (0-3); EOS # 0.1 x10^3/uL (0.0-0.7); EOS % 1 % (0-3); HEMATOCRIT 23.8 % (39.0-53.0); HEMOGLOBIN 7.9 g/dL (13.0-17.5); LYMPH # 1.6 x10^3/uL (1.0-4.8); LYMPH % 17 % (24-48); MEAN CORPUSCULAR HEMOGLOBIN 29 pg (25-35); MEAN CORPUSCULAR HGB CONC 33 g/dL (31-37); MEAN CORPUSCULAR VOLUME 87 fL (79-100); MONO # 1.1 x10^3/uL (0.0-1.1); MONO % 12 % (0-9); NEUT # 6.6 x10^3uL (1.8-7.7); NEUT % 70 % (31-73); PLATELET COUNT 337 x10^3/uL (140-400); RED BLOOD COUNT 2.75 x10^6/uL (4.30-5.70); RED CELL DISTRIBUTION WIDTH 15.6 % (11.5-14.5); WHITE BLOOD COUNT 9.5 x10^3/uL (4.0-11.0)
[2021-12-06 20:52] LABS: CALCIUM 8.2 mg/dL (8.5-10.1); CREATININE 1.2 mg/dL (0.7-1.3); GFR 61.8; POTASSIUM 4.7 mmol/L (3.5-5.1)
--- NOTE | 2021-12-06 20:56 | PHYS DOC ---
Past History Past Medical History: Alcoholism, Diabetes, Hypertension, Other Additional Past Medical Histor: ON BLOOD THINNER FOR VASCULAR DISEASE IN RIGHT LOWER LEG (ANIYAH JEFFREY APRN) Past Surgical History: Cholecystectomy, Other Additional Past Surgical Histo: VASCULAR LEG SURGERY 8; I&D RIGHT LEG; R HIP REPLACE; R KNEE RECONST (ANIYAH JEFFREY APRN) Smoking: Less than 1pk/day Alcohol Use: None Drug Use: None (ANIYAH JEFFREY APRN) General Adult EDM: Chief Complaint: POST-OP PROBLEM HPI: HPI: Patient is a 61-year-old male who presents with bleeding from postop wound. Patient had vascular bypass 1 week ago . Patient's dressing was changed earlier this afternoon by his wound care nurse. After the wound was changed she started bleeding from the area. Wound is bleeding from the left lower extremity. Pedal pulses are intact. Cap refill is less than 2 seconds. Left lower leg feels slightly cooler than the right leg. Patient is denying pain to the area. History of alcoholism, hypertension, diabetes. (ANIYAH JEFFREY APRN) Review of Systems: Review of Systems: ROS At least 10 ROS systems have been reviewed and are negative except as documented in the HPI. General: Negative except as outlined in HPI above. Skin: Negative except as outlined in HPI above. HEENT: Negative except as outlined in HPI above. Neck: Negative except as outlined in HPI above. Respiratory: Negative except as outlined in HPI above.. Cardiovascular: Negative except as outlined in HPI above. Abdomen: Negative except as outlined in HPI above. : Negative except as outlined in HPI above. Back/MSK: Negative except as outlined in HPI above. Neuro: Negative except as outlined in HPI above. Psych: Negative except as outlined in HPI above. (ANIYAH JEFFREY APRN) Allergies: Allergies: Allergies Coded Allergies Type Severity Reaction Last Updated Verified KELTON Inhibitors Allergy Intermediate 12/06/21 Yes lisinopril Allergy Intermediate 12/06/21 Yes (ANIYAH JEFFREY APRN) Physical Exam: PE: Constitutional: Well developed, well nourished, no acute distress, non-toxic appearance. HENT: bilateral external ears normal, oropharynx moist, no oral exudates, nose normal. [] Eyes: PERRLA,conjunctiva normal, no discharge. [] Neck: Normal range of motion, no tenderness, supple Cardiovascular:Heart rate regular rhythm, no murmur Lungs & Thorax: Bilateral breath sounds clear to auscultation Abdomen: Bowel sounds normal, soft, no tenderness, no masses Skin: Anai from post op, vascular bypass, from upper thigh to lower ankle on left side. Back: No tenderness, no CVA tenderness Extremities: Left, lower extremity coldness, bleeding from bypass wound, pedal pulses intact, cap refill less than 2 seconds. Neurologic: Alert and oriented X 3, normal motor function, no focal deficits noted Psychologic: Affect normal, judgement normal, mood normal (ANIYAH JEFFREY APRN) Current Patient Data: Vital Signs: Vital Signs Date Time Temp Pulse Resp B/P (MAP) Pulse Ox O2 Delivery O2 Flow Rate FiO2 12/06/21 19:22 98.4 61 18 177/69 (105) 100 Room Air (ANIYAH JEFFREY APRN) EKG: EKG: [] (ANIYAH JEFFREY APRN) Radiology/Procedures: Radiology/Procedures: [] (ANIYAH JEFFREY APRN) Heart Score: C/O Chest Pain: No Risk Factors: Risk Factors: DM, Current or recent (<one month) smoker, HTN, HLP, family history of CAD, obesity. Risk Scores: Score 0 - 3: 2.5% MACE over next 6 weeks - Discharge Home Score 4 - 6: 20.3% MACE over next 6 weeks - Admit for Clinical Observation Score 7 - 10: 72.7% MACE over next 6 weeks - Early Invasive Strategies (ANIYAH JEFFREY APRN) Course & Med Decision Making: Course & Med Decision Making Pertinent Labs and Imaging studies reviewed. (See chart for details) [] 61-year-old male presents with bleeding from his postop wound. Patient had a vascular bypass done 1 week ago at [facility] by Dr. Tang. Patient has been having a wound care nurse come out and change his dressings. Patient states that today when the dressing was changed it started bleeding shortly after. Patient was told by home care nurse to return to the emergency room to be further evaluated. Patient's wound was still bleeding upon arrival. The gauze was soaked. Blood was light red in color. Left lower extremity was cooler in temperature than the right. Pedal pulses on the left were intact. Cap refill is less than 2 seconds. Mild swelling noted to the left lower extremity. Patient's denying any pain. Denies fever. No drainage from the area. Hemoglobin, 7.9, hematocrit 23.8. Sodium 125. NS bolus given for hydration. I consulted the physician retail sales consultant, Dr. Hummel. Dr. Hummel suggested patient be transferred to an [facility] hospital so he can be further evaluated. Transfer of patient care to @3034 (ANIYAH JEFFREY APRN) Course & Med Decision Making I spoke with Dr. Weldon at [address] [place] [address]. He has accepted the patient for transfer. The patient go by ambulance. (CASTRO ZURITA DO) Dragon Disclaimer: Dragon Disclaimer: This electronic medical record was generated, in whole or in part, using a voice recognition dictation system. (ANIYAH JEFFREY APRN) Attending Co-Sign The patient was seen and interviewed as well as examined at the bedside. The chart was reviewed. The case was discussed. Agree with the plan of care. (CASTRO ZURITA DO) Departure Departure: Impression: Primary Impression: Postoperative bleeding from incision Disposition: 02 SHORT TERM HOSPITAL Condition: STABLE Referrals: SKYLER BRIDGES MD (PCP) ANIYAH JEFFREY APRN Dec 06, 2021 20:56 CASTRO ZURITA DO Dec 07, 2021 01:10
[2021-12-06] MEDS ORDERED: IV NORMAL SALINE 1,000ML 1,000 ML IV ONE (22:00)
[2021-12-06 22:06] VITALS: BP 173/67
[2021-12-06] MEDS ORDERED: MORPHINE SULFATE 4 MG/ML DISP.SYRIN. IV ONE (23:45)
== END 2021-12-06 23:40 | disposition short-term general hospital (02) ==
LOC: ER 19:07
DX: M96.831 Postprocedural hemorrhage of a musculoskeletal structure following other procedure (principal); F10.20 Alcohol dependence, uncomplicated; E11.9 Type 2 diabetes mellitus without complications; I10 Essential (primary) hypertension; F17.200 Nicotine dependence, unspecified, uncomplicated; Z98.890 Other specified postprocedural states; Z88.8 Allergy status to other drugs, medicaments and biological substances; Y90.9 Presence of alcohol in blood, level not specified
CPT/HCPCS: 36415; 80048; 85025; 96361; 96374; 99285; J2270; J7030

== ENCOUNTER → 2022-02-02 | Outpatient (CLI) | payer BC ==
[2022-02-02 19:02] LABS: ALBUMIN/GLOBULIN RATIO 0.7 (1.0-1.7); CALCIUM 8.6 mg/dL (8.5-10.1); CREATININE 1.5 mg/dL (0.7-1.3); GFR 47.7; POTASSIUM 4.1 mmol/L (3.5-5.1); TOTAL BILIRUBIN 0.1 mg/dL (0.2-1.0); TOTAL PROTEIN 7.1 g/dL (6.4-8.2)
[2022-02-02 19:11] LABS: BASO % 0 % (0-3); EOS # 0.2 x10^3/uL (0.0-0.7); EOS % 2 % (0-3); HEMATOCRIT 33.2 % (39.0-53.0); HEMOGLOBIN 10.6 g/dL (13.0-17.5); LYMPH # 1.8 x10^3/uL (1.0-4.8); LYMPH % 18 % (24-48); MEAN CORPUSCULAR HEMOGLOBIN 27 pg (25-35); MEAN CORPUSCULAR HGB CONC 32 g/dL (31-37); MEAN CORPUSCULAR VOLUME 83 fL (79-100); MONO # 0.8 x10^3/uL (0.0-1.1); MONO % 9 % (0-9); NEUT # 7.1 x10^3uL (1.8-7.7); NEUT % 72 % (31-73); PLATELET COUNT 252 x10^3/uL (140-400); RED BLOOD COUNT 3.99 x10^6/uL (4.30-5.70); RED CELL DISTRIBUTION WIDTH 18.2 % (11.5-14.5); WHITE BLOOD COUNT 9.9 x10^3/uL (4.0-11.0)
[2022-02-02 19:41] LABS: CLARITY,URINE CLEAR; COLOR,URINE YELLOW; GLUCOSE,URINE NEG (NEG)
[2022-02-02 19:42] LABS: BACTERIA,URINE 0 /HPF (0-FEW); NITRITE,URINE NEG (NEG); RBC,URINE OCC /HPF (0-2); SQUAMOUS EPITHELIAL CELL,UR FEW /LPF; UROBILINOGEN,URINE 0.2 mg/dL (0.2 mg/dL)
[2022-02-03 23:11] LABS: HEMOGLOBIN A1C 7.2 % (4.8-5.6)
== END ==
LOC: LAB 17:39
PROVIDERS: ATTEND Family Medicine
DX: E11.65 Type 2 diabetes mellitus with hyperglycemia (principal); I73.9 Peripheral vascular disease, unspecified
CPT/HCPCS: 36415; 80053; 81001; 83036; 83690; 85025